=== PATIENT | female | born 1940 | race Caucasian/White ===

== ENCOUNTER 2024-01-07 09:30 | Oncology outpatient (recurring) (ONCR) | payer MEDICARE, BC, SELFPAY ==
[2023-12-30 13:49] LABS: Basophils % 0.1 %; Eosinophils % 0.3 %; Hematocrit 40.2 % (36-47); Lymphocytes # 3.6 10^3/uL (0.8-4.8); Lymphocytes % 51.7 %; Mean Corpuscular HGB Conc 30.8 g/dL (30-55); Mean Corpuscular Hemoglobin 26.8 pg (27-33); Mean Corpuscular Volume 86.8 fl (85-98); Mean Platelet Volume 11.7 fL (7.4-10.4); Monocytes # 0.4 10^3/uL (0.2-0.9); Monocytes % 6.3 %; Neutrophils # 2.89 10^3/uL (1.8-7.7); Neutrophils % 41.5 %; Nucleated Red Blood Cells % 0 %; Platelet Count 127 10^3/cmm (157-399); Red Blood Count 4.63 10^6/uL (3.85-5.65); Red Cell Distribution Width 17.3 % (12.1-15.1); White Blood Count 6.98 10^3/uL (3.29-11.43)
[2023-12-30 15:10] LABS: Alanine Aminotransferase 11 U/L (0-33); Albumin Level 3.9 g/dL (3.5-5.2); Alkaline Phosphatase 70 U/L (35-105); Anion Gap 14.6 (5-19); Aspartate Amino Transferase 11 U/L (0-32); Blood Urea Nitrogen 23 mg/dL (8-23); Carbon Dioxide 28 mmol/L (22-29); Chloride 102 mmol/L (98-107); Creatinine Clr Calc Pharmacy 42.7797; Globulin 2.1 g/dL (1.3-4.6); Glucose 195 mg/dL (65-115); Immunoglobulin IGG 423 mg/dL (700-1600); Lactate Dehydrogenase 131 U/L (135-214); Osmolality Calculated 299 mOsm/kg (285-295); Potassium 4.6 mmol/L (3.5-5.1); Sodium 140 mmol/L (136-145); Total Bilirubin 0.5 mg/dL (0.15-1.2)
[2023-12-30 15:15] LABS: Immunoglobulin IGA < 50 mg/dL (70-400); Immunoglobulin IGM < 25 mg/dL (40-230)
[2024-01-01 12:40] LABS: PROTEIN, TOTAL 5.6 g/dL (6.1-8.1)
[2024-01-01 16:45] LABS: ABNORMAL PROTEIN BAND 1 0.1 g/dL (NONE DETECTED); ALBUMIN 3.6 g/dL (3.8-4.8); ALPHA 1 GLOBULIN 0.3 g/dL (0.2-0.3); ALPHA 2 GLOBULIN 0.8 g/dL (0.5-0.9); BETA 1 GLOBULIN 0.4 g/dL (0.4-0.6); BETA 2 GLOBULIN 0.3 g/dL (0.2-0.5); GAMMA GLOBULIN 0.4 g/dL (0.8-1.7)
[2024-01-04 22:39] LABS: Immunofixation Serum Normal pattern.
[2024-01-07] VITALS (9 sets, daily range): BP systolic 109–156; BP diastolic 62–75; PULSE 60–70; RESP 16; TEMP 35.9–36.3; O2SAT 91–96
[2024-01-07] MEDS: diphenhydrAMINE 25 mg Capsule PO (10:48)
[2024-01-07] MEDS: acetaminophen 325 mg Tablet 650 MG PO (10:48)
[2024-01-07] MEDS: immune globulin (Privigen ONC) 20 GM, immune globulin (Privigen-ONC) 10 GM in empty fle... IV (11:20)
== END 2024-01-25 23:59 | disposition home or self-care (01) ==
PROVIDERS: Visit Provider Internal Medicine Medical Oncology
DX: Z53.9 Procedure and treatment not carried out, unspecified reason (principal); D80.1 Nonfamilial hypogammaglobulinemia
CPT/HCPCS: 36415; 80053; 82784; 83615; 84155; 84165; 85025; 86334; 96365; 96366; 99205; J1459

== ENCOUNTER 2024-02-04 09:04 | Oncology outpatient (recurring) (ONCR) | payer MEDICARE, BC, SELFPAY ==
[2024-02-04] VITALS (7 sets, daily range): BP systolic 135–154; BP diastolic 65–90; PULSE 38–77; RESP 16–17; TEMP 36.2–36.6; O2SAT 90–96
[2024-02-04 09:33] LABS: Basophils % 0.2 %; Eosinophils % 0.5 %; Hematocrit 40.2 % (36-47); Lymphocytes # 3.7 10^3/uL (0.8-4.8); Lymphocytes % 55.7 %; Mean Corpuscular HGB Conc 30.8 g/dL (30-55); Mean Corpuscular Hemoglobin 27.4 pg (27-33); Mean Corpuscular Volume 88.7 fl (85-98); Mean Platelet Volume 11.7 fL (7.4-10.4); Monocytes # 0.3 10^3/uL (0.2-0.9); Monocytes % 4.8 %; Neutrophils # 2.56 10^3/uL (1.8-7.7); Neutrophils % 38.5 %; Nucleated Red Blood Cells % 0 %; Platelet Count 121 10^3/cmm (157-399); Red Blood Count 4.53 10^6/uL (3.85-5.65); Red Cell Distribution Width 16.6 % (12.1-15.1); White Blood Count 6.63 10^3/uL (3.29-11.43)
[2024-02-04 09:44] LABS: Alanine Aminotransferase 12 U/L (0-33); Albumin Level 3.7 g/dL (3.5-5.2); Alkaline Phosphatase 56 U/L (35-105); Blood Urea Nitrogen 23 mg/dL (8-23); Calcium 8.9 mg/dL (8.5-10.5); Carbon Dioxide 28 mmol/L (22-29); Chloride 100 mmol/L (98-107); Glucose 289 mg/dL (65-115); Osmolality Calculated 302 mOsm/kg (285-295); Sodium 139 mmol/L (136-145); Total Bilirubin 0.3 mg/dL (0.15-1.2); Total Protein 5.7 g/dL (6.6-8.7)
[2024-02-04 09:46] LABS: Anion Gap 16.5 (5-19); Aspartate Amino Transferase 14 U/L (0-32); Lactate Dehydrogenase 178 U/L (135-214); Potassium 5.5 mmol/L (3.5-5.1)
[2024-02-04] MEDS: acetaminophen 325 mg Tablet 650 MG PO (11:27)
[2024-02-04] MEDS: diphenhydrAMINE 25 mg Capsule PO (11:27)
[2024-02-04] MEDS: immune globulin (Privigen ONC) 20 GM, immune globulin (Privigen-ONC) 10 GM in empty fle... IV (11:55)
--- NOTE | 2024-02-04 12:15 | USCV_ITS ---
Dacia Zuñiga Age: 83 Gender: F : 1940 Exam Date: 02/04/2024 14:54 Ordering Phys: Judi Kline APRN Technologist: MARTIN Exam Location: [facility] [place] Indication: RLE PAIN AND SWELLING [id number] HISTORY: Lower extremity swelling. Lower extremity pain. PROCEDURES: Venous duplex imaging was performed in only the right lower extremity. The following venous structures were evaluated: common femoral vein, profunda vein, proximal portion of the greater saphenous vein, superficial femoral vein, and the popliteal vein. In addition, the posterior tibial and peroneal trunk were evaluated. Serial compression, augmentation maneuvers, and spectral Doppler flow evaluation were performed. FINDINGS: No evidence of DVT seen in any vessel visualized at this time. CONCLUSIONS No evidence of right lower extremity DVT. Josue Friedman MD (Electronically Signed) Final Date: 04 February 2024 16:02 S
[2024-02-04 15:08] LABS: Potassium 4.2 mmol/L (3.5-5.1)
== END 2024-02-25 23:59 | disposition home or self-care (01) ==
PROVIDERS: Nurse Practitioner Family; Visit Provider Internal Medicine Medical Oncology
DX: D80.1 Nonfamilial hypogammaglobulinemia; C91.10 Chronic lymphocytic leukemia of B-cell type not having achieved remission; Z87.891 Personal history of nicotine dependence; Z92.3 Personal history of irradiation; Z85.831 Personal history of malignant neoplasm of soft tissue; Z53.9 Procedure and treatment not carried out, unspecified reason; Z79.69 Long term (current) use of other immunomodulators and immunosuppressants; Z79.899 Other long term (current) drug therapy; M79.661 Pain in right lower leg
CPT/HCPCS: 80053; 83615; 84132; 85025; 93971; 96365; 96366; 99214; J1459

== ENCOUNTER → 2024-02-17 12:40 | Outpatient (BNVA) | payer MEDICARE, BC, SELFPAY | PROVIDERS: PCP Family Medicine; Visit Provider Internal Medicine | DX: R07.9 Chest pain, unspecified (principal) | CPT/HCPCS: 93005; 99204 ==

== ENCOUNTER → 2024-03-01 13:53 | Outpatient (BNVA) | payer MEDICARE, BC, SELFPAY | PROVIDERS: PCP Family Medicine; Visit Provider Podiatrist Foot & Ankle Surgery | DX: L60.3 Nail dystrophy (principal); G62.9 Polyneuropathy, unspecified; E11.42 Type 2 diabetes mellitus with diabetic polyneuropathy; Z79.4 Long term (current) use of insulin | CPT/HCPCS: 11721; 99203 ==

== ENCOUNTER 2024-03-09 11:07 | Outpatient (CLI) | payer MEDICARE, BC, SELFPAY ==
--- NOTE | 2024-03-09 11:30 | PETR_ITS ---
PROCEDURE INFORMATION: Exam: PET/CT Whole Body Exam date and time: 03/09/2024 12:25 PM Age: 83 years old Clinical indication: Condition or disease; Primary cancer: Cll, soft tissue sarcoma right leg LABS AND CLINICAL REPORTS: Glucose: 155 mg/dl Treatment strategy for malignancy (PET staging): Restaging (PS) TECHNIQUE: Imaging protocol: Following at least four-hour fasting and following the injection of radiopharmaceutical, low dose CT images were obtained. Then, PET images were obtained. Attenuation corrected images were constructed using the CT scan. Fused images of PET and CT were reviewed. The standardized uptake values (SUV) reported below are maximum values within a region of interest, expressed in gm/ml. Exam includes the whole body. Radiopharmaceutical: 9.01 mCi F-18 FDG (Fluorodeoxyglucose), IV. Time of imaging post radiopharmaceutical administration: 1 hour Injection site: Right hand COMPARISON: PT PET Scan 05/22/2023 12:01 PM FINDINGS: Brain: Visualized brain has normal physiologic uptake. Pharynx: No abnormal uptake. Larynx: No abnormal uptake. Thyroid: Stable enlarged multinodular thyroid. Lungs, pleura and trachea: No abnormal uptake. Increased size of 1.2 x 1.1 cm left lower lobe superior segment nodule on axial image 106 of series 202 shows increased solid density with SUV max of 1.0, previously 1.1 x 0.8 cm with ground-glass attenuation and SUV max of 1.0. Smaller subcentimeter non FDG avid right lower lobe nodules are stable. Increased jvcf-kn-cvaevdcw left pleural effusion. Heart: Normal physiologic uptake. Left atrial appendage occlusion device. Stable metallic density at the right ventricular apex. Coronary arteries: Moderate coronary artery calcification. Mediastinal space: No abnormal uptake. Diaphragm: Small hiatal hernia. Liver: No abnormal uptake. Gallbladder and biliary ducts: No abnormal uptake. Prior cholecystectomy. Pancreas: No abnormal uptake. Spleen: No abnormal uptake. Adrenal glands: No abnormal uptake. Stable 1.6 cm non FDG avid left adrenal nodule with hypoattenuation compatible with adenoma. Kidneys and ureters: Normal physiologic uptake. Bilateral renal cysts. Stomach and bowel: No abnormal uptake. Colonic diverticulosis without findings of diverticulitis. Reproductive: The uterus is surgically absent. Vasculature: No abnormal uptake. Heavy systemic atherosclerotic calcification without aortic aneurysm. Lymph nodes: No abnormal uptake. No lymphadenopathy in the head, neck, chest, abdomen, pelvis, and extremities. Skeleton: Degenerative change along the axial and appendicular skeletal system with right knee arthroplasty. Soft tissues: Linear uptake along lower, mhqbd-xlraups-hkvl-left upper back, bilateral forearm and hand, and rnczh-kiawnkq-zhlh-left foot extensor brevis musculature without underlying CT abnormality is likely physiologic or strain. Right anterior lower leg postsurgical change without FDG avidity. Stable nonaggressive appearing lipomatous mass appears to be located within the right quadratus femoris muscle measuring 5.7 x 3.5 cm on axial image 291 of series 202 compatible with intramuscular lipoma. PET/PET WB melanoma SUBSEQ [id number] IMPRESSION: 1. Right lower leg postsurgical change without evidence of FDG avid residual or metastatic disease. 2. Mildly increased size and attenuation of 1.2 cm left lower lobe superior segment nodule. Although very low-level FDG uptake suggests benignity, mildly increased size and morphologic features are concerning for adenocarcinoma. 3. Increased szzr-kj-wbiyelal left pleural effusion. 4. Additional chronic and incidental findings as above.
== END 2024-03-09 11:08 | disposition home or self-care (01) ==
PROVIDERS: PCP Family Medicine; Visit Provider Internal Medicine Medical Oncology
DX: C91.10 Chronic lymphocytic leukemia of B-cell type not having achieved remission (principal); C49.21 Malignant neoplasm of connective and soft tissue of right lower limb, including hip; R91.8 Other nonspecific abnormal finding of lung field; J90 Pleural effusion, not elsewhere classified; Z95.811 Presence of heart assist device; I25.84 Coronary atherosclerosis due to calcified coronary lesion; K44.9 Diaphragmatic hernia without obstruction or gangrene; Z90.49 Acquired absence of other specified parts of digestive tract; D35.02 Benign neoplasm of left adrenal gland; Q61.02 Congenital multiple renal cysts; K57.90 Diverticulosis of intestine, part unspecified, without perforation or abscess without bleeding; Z90.710 Acquired absence of both cervix and uterus; Z96.651 Presence of right artificial knee joint; R93.89 Abnormal findings on diagnostic imaging of other specified body structures
CPT/HCPCS: 78816; A9552

== ENCOUNTER 2024-03-19 13:00 | Oncology outpatient (recurring) (ONCR) | payer MEDICARE, BC, SELFPAY ==
[2024-03-03] VITALS (9 sets, daily range): BP systolic 93–158; BP diastolic 49–74; PULSE 58–79; RESP 16; TEMP 35.8–36.6; O2SAT 94–96
[2024-03-03 08:53] LABS: Basophils % 0.2 %; Eosinophils % 0.4 %; Hematocrit 38.8 % (36-47); Lymphocytes # 4.2 10^3/uL (0.8-4.8); Mean Corpuscular Hemoglobin 28.2 pg (27-33); Mean Corpuscular Volume 88.4 fl (85-98); Mean Platelet Volume 11.5 fL (7.4-10.4); Monocytes # 0.5 10^3/uL (0.2-0.9); Monocytes % 5.7 %; Neutrophils # 3.59 10^3/uL (1.8-7.7); Neutrophils % 43.2 %; Nucleated Red Blood Cells % 0 %; Platelet Count 136 10^3/cmm (157-399); Red Blood Count 4.39 10^6/uL (3.85-5.65); Red Cell Distribution Width 15.9 % (12.1-15.1)
[2024-03-03 09:17] LABS: Alanine Aminotransferase 13 U/L (0-33); Albumin Level 3.6 g/dL (3.5-5.2); Alkaline Phosphatase 51 U/L (35-105); Aspartate Amino Transferase 12 U/L (0-32); Blood Urea Nitrogen 20 mg/dL (8-23); Calcium 8.7 mg/dL (8.5-10.5); Carbon Dioxide 26 mmol/L (22-29); Chloride 104 mmol/L (98-107); Glucose 195 mg/dL (65-115); Osmolality Calculated 302 mOsm/kg (285-295); Sodium 142 mmol/L (136-145); Total Bilirubin 0.4 mg/dL (0.15-1.2); Total Protein 5.6 g/dL (6.6-8.7)
[2024-03-03] MEDS: acetaminophen 325 mg Tablet 650 MG PO (10:56)
[2024-03-03] MEDS: diphenhydrAMINE 25 mg Capsule PO (10:56)
[2024-03-03] MEDS: immune globulin (Privigen ONC) 20 GM, immune globulin (Privigen-ONC) 10 GM in empty fle... IV (11:18)
--- NOTE | 2024-03-19 13:00 | USCV_ITS ---
Dacia Zuñiga Age: 83 Gender: F : 1940 Exam Date: 03/19/2024 13:07 Ordering Phys: Diego Conde M.D ([email or web address]) Technologist: CT Exam Location: [facility] – [place] Indication: BP: 120 / 60 HR: 63 Rhythm: Sinus Technical Quality: Adequate MEASUREMENTS (Male / Female) Normal Values 2D ECHO LVOT Diameter 2.2 cm LV Ejection Fraction MOD 4C 44.9 % LV Ejection Fraction MOD 2C 55.5 % LV Ejection Fraction 2C AL 58.0 % LA Diameter 5.0 cm RA Systolic Volume 4C AL 67.6 ml RA Systolic Volume 4C MOD 65.4 ml LA Sys Volume AL 89.2 cm cubed LA Sys Volume Index AL 47.2 cm cubed/m squared Aorta at Sinotubular Diameter 2.3 cm IVC Diameter 2.8 cm M-MODE LA Ao Ratio MM 1.8 AV Cusp Separation MM 1.8 cm DOPPLER AV Peak Velocity 138.0 cm/s LVOT Peak Velocity 66.0 cm/s AV Area Cont Eq vti 2.1 cm squared AV Area Cont Eq pk 1.8 cm squared MV Peak Velocity 127.0 cm/s MV Area PHT 4.3 cm squared Mitral E to A Ratio 2.4 TR Peak Velocity 357.0 cm/s TR Peak Gradient 51.0 mmHg TV Peak E Velocity 81.0 cm/s Right Atrial Pressure 3.0 mmHg Pulmonary Artery Systolic Pressu 54.0 mmHg PV Peak Velocity 90.0 cm/s FINDINGS Left Ventricle Left ventricle is normal size. LV systolic function is normal with EF of 50-55%. No regional wall motion abnormalities are seen. Septal motion is consistent with conduction abnormality. Right Ventricle Normal in size and function Right Atrium Dilated Left Atrium Dilated Mitral Valve Mild mitral annular calcification. Mild mitral regurgitation. Aortic Valve Structurally normal aortic valve. Mild aortic regurgitation. Tricuspid Valve Mild tricuspid regurgitation. RVSP is 50 to 55 mmHg. This is consistent with moderate pulmonary hypertension Pulmonic Valve Mild pulmonic regurgitation Pericardium Normal Aorta Normal in size IVC Appears to dilated CONCLUSIONS LV systolic function is normal with EF of 50 to 55%. Septal motion is consistent with conduction abnormality Biatrial enlargement Mild mitral regurgitation. Mild aortic regurgitation Mild tricuspid regurgitation Moderate pulmonary hypertension Mild pulmonic regurgitation IVC appears to be dilated. No comparison studies are available. Diego Conde MD (Electronically Signed) Final Date: 20 March 2024 18:35 S
--- NOTE | 2024-03-19 14:00 | USCV_ITS ---
Dacia Zuñiga Age: 83 Gender: F : 1940 Exam Date: 03/19/2024 13:45 Ordering Phys: Diego Conde M.D ([email or web address]) Technologist: [place] [facility] [place]: HISTORY: PROCEDURES: FINDINGS: The veins were found to be easily compressible with spontaneous blood flow. Non pulsatile flow pattern. Venous reflux was noted at the proximal and mid segment of the small saphenous vein on the right side. The reflux time was 0.8 and 1.4 seconds respectively. The venous segments were measuring 0.4 and 0.3 cm in diameter and at a depth of 0.7 and 0.4 cm respectively. CONCLUSIONS No evidence of DVT in the above-mentioned identifiable veins. 2. The proximal and mid segment of the small saphenous vein on the right side was found to have significant reflux of greater than 500 ms. However this venous segments were found to be less than 1 cm from the surface. The reflux time, venous dimensions and the depth from the surface are as mentioned above 3. No significant reflux on the left side Dr Alba Montenegro MD [facility] (Electronically Signed) Final Date: 20 March 2024 09:36 S
== END 2024-03-27 23:59 | disposition home or self-care (01) ==
LOC: ONCMED 03-22 06:57
PROVIDERS: Nurse Practitioner Family; PCP Family Medicine; Visit Provider Internal Medicine
DX: Z53.9 Procedure and treatment not carried out, unspecified reason (principal); M79.604 Pain in right leg; M79.605 Pain in left leg; I87.2 Venous insufficiency (chronic) (peripheral); I08.3 Combined rheumatic disorders of mitral, aortic and tricuspid valves; I27.20 Pulmonary hypertension, unspecified
CPT/HCPCS: 80053; 85025; 93306; 93970; 96365; 96366; 99214; J1459

== ENCOUNTER 2024-04-01 09:17 | Oncology outpatient (recurring) (ONCR) | payer MEDICARE, BC, SELFPAY ==
[2024-04-01] VITALS (8 sets, daily range): BP systolic 113–137; BP diastolic 56–76; PULSE 60–73; RESP 16–18; TEMP 35.6–36.6; O2SAT 91–97
[2024-04-01 09:38] LABS: Basophils % 0.1 %; Eosinophils % 0.4 %; Hematocrit 41.5 % (36-47); Lymphocytes # 3.4 10^3/uL (0.8-4.8); Lymphocytes % 45.7 %; Mean Corpuscular HGB Conc 31.6 g/dL (30-55); Mean Corpuscular Volume 88.7 fl (85-98); Mean Platelet Volume 11.8 fL (7.4-10.4); Monocytes # 0.4 10^3/uL (0.2-0.9); Monocytes % 5.7 %; Neutrophils # 3.49 10^3/uL (1.8-7.7); Neutrophils % 47.7 %; Nucleated Red Blood Cells % 0 %; Platelet Count 126 10^3/cmm (157-399); Red Blood Count 4.68 10^6/uL (3.85-5.65); Red Cell Distribution Width 15.2 % (12.1-15.1); White Blood Count 7.33 10^3/uL (3.29-11.43)
[2024-04-01 09:58] LABS: Alanine Aminotransferase 10 U/L (0-33); Albumin Level 3.9 g/dL (3.5-5.2); Alkaline Phosphatase 47 U/L (35-105); Anion Gap 16.7 (5-19); Aspartate Amino Transferase 10 U/L (0-32); Blood Urea Nitrogen 25 mg/dL (8-23); Calcium 9.3 mg/dL (8.5-10.5); Carbon Dioxide 28 mmol/L (22-29); Chloride 100 mmol/L (98-107); Globulin 2.2 g/dL (1.3-4.6); Glucose 269 mg/dL (65-115); Lactate Dehydrogenase 116 U/L (135-214); Osmolality Calculated 304 mOsm/kg (285-295); Potassium 4.7 mmol/L (3.5-5.1); Sodium 140 mmol/L (136-145); Total Bilirubin 0.5 mg/dL (0.15-1.2); Total Protein 6.1 g/dL (6.6-8.7)
[2024-04-01] MEDS: diphenhydrAMINE 25 mg Capsule PO (11:48)
[2024-04-01] MEDS: acetaminophen 325 mg Tablet 650 MG PO (11:49)
[2024-04-01] MEDS: immune globulin (Privigen ONC) 20 GM, immune globulin (Privigen-ONC) 10 GM in empty fle... IV (12:06)
== END 2024-04-26 23:59 | disposition home or self-care (01) ==
PROVIDERS: Internal Medicine Medical Oncology; PCP Family Medicine; Visit Provider Internal Medicine
DX: C91.10 Chronic lymphocytic leukemia of B-cell type not having achieved remission; C49.9 Malignant neoplasm of connective and soft tissue, unspecified; D80.1 Nonfamilial hypogammaglobulinemia; Z85.831 Personal history of malignant neoplasm of soft tissue; Z87.891 Personal history of nicotine dependence; Z92.3 Personal history of irradiation; Z79.69 Long term (current) use of other immunomodulators and immunosuppressants; Z79.899 Other long term (current) drug therapy; Z53.9 Procedure and treatment not carried out, unspecified reason; J90 Pleural effusion, not elsewhere classified
CPT/HCPCS: 36415; 80053; 83615; 85025; 96365; 96366; 99214; J1459

== ENCOUNTER 2024-04-06 10:00 | Day surgery (SDC) | payer MEDICARE, BC, SELFPAY ==
[2024-04-06 10:11] VITALS: BMI 29.2
--- NOTE | 2024-04-06 10:14 | US_ITS ---
WS: [email or web address] ULTRASOUND-GUIDED THORACENTESIS, LEFT HISTORY: abnormal imaging lt lung Procedure, risks, and complications were explained to the patient. With the patient in an upright pos ition, the skin over the LEFT posterior thorax was cleansed with ChloraPrep and anesthetized with 1% buffered lidocaine. A 5 Thai [employer]dSY[employer]eh needle is inserted into the pleural fluid without complication. A pproximately 400 cc of light red pleural fluid is removed without difficulty. / thoracentesis [id number] IMPRESSION: 1. LEFT thoracentesis yielding 400 cc of fluid. 2. Chest radiograph to follow to evaluate for pneumothorax. 3. Pleural fluid aspirated is light red containing dilute blood.
[2024-04-06 10:31] VITALS: BP 150/62; PULSE 61; RESP 20; TEMP 36.5; O2SAT 92
--- NOTE | 2024-04-06 11:57 | XR_ITS ---
WS: [email or web address] PORTABLE CHEST HISTORY: Post LEFT thoracentesis. COMPARISON: None available. No pneumothorax status post thoracentesis. Lungs are well aerated. No residual pleural effusion. No pneumothorax. Cardiac size: Mild cardiomegaly. Cardiac loop recorder noted over the lower thorax. Mediastinum/Aorta: Mild atherosclerosis aorta. Degenerative changes at the glenohumeral joints. XR/XR chest 1V portable [id number] IMPRESSION: No pneumothorax status post LEFT thoracentesis. No residual LEFT pleural effusion.
[2024-04-06 12:19] LABS: Appearance, Pleural Fluid CLOUDY (CLEAR); Color, Pleural Fluid Red (Pale Yellow); Cyto Order Verification Order Verified; Left Pleural Fluid Analysis Left Lung
[2024-04-06 12:20] LABS: Fluid Laterality LEFT LUNG PLEURAL FL; PATH Referral YES
[2024-04-06 12:27] LABS: Mononuclear %, Pleural Fluid 96 %; Mononuclear, Pleural Fluid # 0.982 10^3/uL; Polynuclear Cells, Pleural # 0.042 10^3/uL; Polynuclear Cells, Pleural % 4 %
[2024-04-06 13:40] LABS: LDH Pleural Fluid 68 U/L; Total Protein Pleural Fluid 3.4 g/dL
== END 2024-04-06 12:50 | disposition home or self-care (01) ==
PROVIDERS: Radiology Diagnostic Radiology; PCP Family Medicine; Visit Provider Internal Medicine Medical Oncology
PROC: (CPT 32554; principal; 2024-04-06 11:30)
DX: R91.8 Other nonspecific abnormal finding of lung field (principal)
CPT/HCPCS: 32555; 71045; 80503; 82945; 83615; 84157; 87070; 87075; 87205; 88112; 88305; 89050

== ENCOUNTER → 2024-04-07 10:52 | Outpatient (BNVA) | payer MEDICARE, BC, SELFPAY | PROVIDERS: PCP Family Medicine; Referring Provider Family Medicine; Visit Provider Nurse Practitioner Family | DX: D48.5 Neoplasm of uncertain behavior of skin (principal); L57.8 Other skin changes due to chronic exposure to nonionizing radiation; L82.1 Other seborrheic keratosis; L82.0 Inflamed seborrheic keratosis; L81.4 Other melanin hyperpigmentation; D18.01 Hemangioma of skin and subcutaneous tissue; L21.8 Other seborrheic dermatitis; L57.0 Actinic keratosis; L91.8 Other hypertrophic disorders of the skin | CPT/HCPCS: 11102; 17000; 17110; 99204 ==

== ENCOUNTER 2024-04-22 11:21 | Day surgery (SDC) | payer MEDICARE, BC, SELFPAY ==
[2024-04-22 11:40] VITALS: BP 129/70; PULSE 20; RESP 20; TEMP 36.1; O2SAT 95; BMI 29.8
--- NOTE | 2024-04-22 11:45 | US_ITS ---
WS: [email or web address] ULTRASOUND-GUIDED THORACENTESIS, LEFT HISTORY: PLEURAL EFFUSION Procedure, risks, and complications were explained to the patient. With the patient in an upright pos ition, the skin over the LEFT posterior thorax was cleansed with ChloraPrep and anesthetized with 1% buffered lidocaine. A 5 [place] Yueh needle is inserted into the pleural fluid without complication. A pproximately 1500 cc of dark red bloody pleural fluid is removed without difficulty. / thoracentesis [id number] IMPRESSION: 1. LEFT thoracentesis yielding 1500 cc of fluid. 2. Chest radiograph to follow to evaluate for pneumothorax.
--- NOTE | 2024-04-22 13:18 | XR_ITS ---
WS: [email or web address] PORTABLE CHEST HISTORY: POST THORACENTESIS COMPARISON: 04/16/2024 No pneumothorax status post LEFT thoracentesis. There is a small residual LEFT pleural effusion and/o r atelectasis. Lungs are clear and well expanded. No pleural effusion or pneumothorax. Cardiac size: Mildly enlarged cardiac silhouette. Mediastinum/Aorta: Mild atherosclerosis aorta. Osteopenia. XR/XR chest 1V portable [id number] IMPRESSION: 1. No pneumothorax status post LEFT thoracentesis. 2. Small amount of residual LEFT pleural fluid and/or atelectasis.
[2024-04-22 13:22] VITALS: BP 154/64; PULSE 68; RESP 20; O2SAT 94
== END 2024-04-22 13:54 | disposition home or self-care (01) ==
PROVIDERS: Radiology Diagnostic Radiology
PROC: (CPT 32554; principal; 2024-04-22 13:00)
DX: J90 Pleural effusion, not elsewhere classified (principal)
CPT/HCPCS: 32555; 71045

== ENCOUNTER 2024-04-22 19:17 | Emergency (ER) | payer MEDICARE, BC, SELFPAY ==
[2024-04-22] VITALS (8 sets, daily range): BP systolic 131–198; BP diastolic 56–89; PULSE 69–87; RESP 16–18; TEMP 36.5; O2SAT 93–97; BMI 29.5
--- NOTE | 2024-04-22 19:20 | ECG_ITS ---
[facility] Test Date: 2024-04-22 Pat Name: Dacia Zuñiga Department: Room: Gender: Female [employer]: : 1940 Requested By: Cecille Herman Order Number: [id number] Karolyn MD: Alba Montenegro M.D. Measurements Intervals [place] Rate: 72 P: 0 CO: 0 QRS: -39 QRSD: 169 T: 87 QT: 402 QTc: 440 Interpretive Statements ELECTRONIC VENTRICULAR PACEMAKER ABNORMAL RHYTHM ECG Compared to ECG 02/17/2024 12:49:22 No significant changes Electronically Signed On 04-23-2024 20:24:29 CDT by Alba Montenegro M.D. [id number]
--- NOTE | 2024-04-22 19:22 | XRR_ITS ---
PROCEDURE INFORMATION: Exam: XR Chest Exam date and time: 04/22/2024 8:02 PM Age: 83 years old Clinical indication: Pain; Chest pressure; Prior surgery; Surgery date: 6+ months; Surgery type: Loop recorder; Additional info: Chest pain TECHNIQUE: Imaging protocol: Radiologic exam of the chest. Views: 1 view. COMPARISON: CR XR chest 1V portable [id number] 04/22/2024 1:31 PM FINDINGS: Tubes, catheters and devices: Left atrial appendage occlusion device, stable. Loop recorder. Lungs: Opacification of the left lung base effacing the left hemidiaphragm. Pleural spaces: Probable left pleural effusion. No pneumothorax. Heart/Mediastinum: Cardiomegaly. Bones/joints: No acute findings. XR/XR chest 1V portable [id number] IMPRESSION: Opacification of the left lung base may represent any combination pleural effusion, atelectasis and/or consolidation.
[2024-04-22 19:46] LABS: Basophils % 0.3 %; Eosinophils % 0.6 %; Hematocrit 35.5 % (36-47); Lymphocytes # 2.9 10^3/uL (0.8-4.8); Lymphocytes % 41.7 %; Mean Corpuscular Hemoglobin 28.4 pg (27-33); Mean Corpuscular Volume 91.7 fl (85-98); Mean Platelet Volume 12.1 fL (7.4-10.4); Monocytes # 0.6 10^3/uL (0.2-0.9); Neutrophils # 3.36 10^3/uL (1.8-7.7); Nucleated Red Blood Cells % 0 %; Platelet Count 105 10^3/cmm (157-399); Red Blood Count 3.87 10^6/uL (3.85-5.65); Red Cell Distribution Width 15.6 % (12.1-15.1); White Blood Count 6.86 10^3/uL (3.29-11.43)
[2024-04-22 20:09] LABS: Troponin(5th) Baseline 18 ng/L (0-10)
--- NOTE | 2024-04-22 20:18 | CTR_ITS ---
PROCEDURE INFORMATION: Exam: CT Chest Without Contrast; Diagnostic Exam date and time: 04/22/2024 8:48 PM Age: 83 years old Clinical indication: Shortness of breath; Prior surgery; Surgery date: Post-operative (0-2 days); Surgery type: Thoracentesis; Additional info: Thoracentesis earlier today, now with chest pain TECHNIQUE: Imaging protocol: Diagnostic computed tomography of the chest without contrast. Radiation optimization: All CT scans at this facility use at least one of these dose optimization techniques: automated exposure control; mA and/or kV adjustment per patient size (includes targeted exams where dose is matched to clinical indication); or iterative reconstruction. COMPARISON: CT chest con [id number] 04/18/2024 11:03 AM RADIATION DOSE METRICS: Total DLP (mGy-cm): 488.21 FINDINGS: Tubes, catheters and devices: Left atrial appendage occlusive device. Lungs: Improved aeration of the left lower lobe with patchy ground-glass opacities which could represent atelectasis or pulmonary edema. Stable bilateral ground-glass nodules, including the 1.2 cm nodule in the left lower lobe and 1.0 cm nodule in the right lower lobe. Pleural spaces: Decreased left pleural effusion status post thoracentesis. Heart: Unremarkable. No cardiomegaly. No pericardial effusion. Lymph nodes: Unremarkable. No enlarged lymph nodes. Vasculature: No aortic aneurysm. Bones/joints: No acute bony findings. Soft tissues: Unremarkable. CT/CT chest con [id number] IMPRESSION: 1. Decreased left pleural effusion with associated improved left lower lobe aeration status post thoracentesis. No pneumothorax. 2. Atelectasis and/or mild component of pulmonary edema in the left lower lobe. 3. Stable nonspecific bilateral lower lobe ground-glass nodules, which may be infectious/inflammatory in etiology. Recommend follow-up CT as previously suggested.
[2024-04-22 20:19] LABS: NT Pro B Type Natriuretic Pept 970 pg/mL (0-450); Procalcitonin 0.03 ng/mL (0-0.5)
[2024-04-22 20:30] LABS: Alanine Aminotransferase 9 U/L (0-33); Albumin Level 3.7 g/dL (3.5-5.2); Alkaline Phosphatase 44 U/L (35-105); Aspartate Amino Transferase 10 U/L (0-32); Blood Urea Nitrogen 23 mg/dL (8-23); C Reactive Protein 18.7 mg/L (0.0-4.9); Calcium 8.8 mg/dL (8.5-10.5); Carbon Dioxide 30 mmol/L (22-29); Chloride 98 mmol/L (98-107); Creatinine Clr Calc Pharmacy 53.8562; Globulin 1.6 g/dL (1.3-4.6); Glucose 146 mg/dL (65-115); Osmolality Calculated 292 mOsm/kg (285-295); Sodium 138 mmol/L (136-145); Total Bilirubin 0.2 mg/dL (0.15-1.2); Total Protein 5.3 g/dL (6.6-8.7)
[2024-04-22 20:33] LABS: Anion Gap 14.6 (5-19); Potassium 4.6 mmol/L (3.5-5.1)
--- NOTE | 2024-04-22 21:04 | ED_ITS ---
HPI - Chest Pain 2 General: Chief Complaint: Chest Pain Stated Complaint: chest pain Time Seen by Provider: 04/22/24 19:19 History of Present Illness: 83-year-old female who has a chronic ple ural effusion has had it drained twice now. Second time was today. Said after it was drained she is been having pain in her left chest. Pain with inspiration. Not really short of breath more than usual. This is the first time he took about 400 cc office and today they took 1500. No fever. No cough. No altered mental status. No focal motor deficits. No abdominal pain. No nausea or vomiting. Related Data Home Medications Medication Instructions Recorded Confirmed amlodipine 5 mg tablet 5 mg PO DAILY 12/30/23 04/21/24 aspirin 81 mg tablet,delayed 81 mg PO DAILY 12/30/23 04/21/24 release (Adult Low Dose Aspirin) atorvastatin 40 mg tablet 40 mg PO DAILY 12/30/23 04/21/24 cetirizine 10 mg tablet (Zyrtec) 10 mg PO DAILY 12/30/23 04/21/24 digoxin 125 mcg (0.125 mg) tablet 125 mcg PO DAILY 12/30/23 04/21/24 furosemide 40 mg tablet 40 mg PO DAILY 12/30/23 04/21/24 gabapentin 300 mg capsule 300 mg PO TID 12/30/23 04/21/24 insulin glargine 100 unit/mL (3 10 unit SUBCUT BID PRN 12/30/23 04/21/24 mL) subcutaneous pen (Basaglar Hyperglycemia KwikPen U-100 Insulin) potassium chloride 10 mEq 10 meq PO BID 12/30/23 04/21/24 tablet,extended release tizanidine 2 mg capsule 2 mg PO BID 12/30/23 04/21/24 tramadol 50 mg tablet 100 mg PO DAILY PRN Pain 12/30/23 04/21/24 acetaminophen 500 mg tablet 1,000 mg PO QID PRN Pain 03/24/24 04/21/24 biotin 2,500 mcg tablet 1,250 mcg PO DAILY 03/24/24 04/21/24 calcium carbonate-vitamin D3 600 1 tab PO DAILY 03/24/24 04/21/24 mg-125 unit tablet ferrous sulfate 325 mg (65 mg 325 mg PO DAILY 03/24/24 04/21/24 iron) tablet Previous Rx's Medication Instructions Recorded zanubrutinib 80 mg capsule 160 mg (2 x 80 mg) PO BID #120 caps 04/01/24 (Brukinsa) hydrocodone 5 mg-acetaminophen 325 1 tab PO Q6H PRN pain #20 tabs 04/22/24 mg tablet polyethylene glycol 3350 17 17 g PO DAILY #510 grams 04/22/24 gram/dose oral powder (Miralax) Allergies Allergy/AdvReac Type Severity Reaction Status Date / Time guaifenesin Allergy Intermediate ALGY-Hives Verified 04/21/24 09:40 iodine Allergy Intermediate ALGY-Hives Verified 04/21/24 09:40 levofloxacin Allergy Intermediate ALGY-Hives Verified 04/21/24 09:40 meloxicam [From Mobic] Allergy Intermediate ALGY-Hives Verified 04/21/24 09:40 morphine Allergy Intermediate ALGY-Hives Verified 04/21/24 09:40 nitrofurantoin Allergy Intermediate ALGY-Hives Verified 04/21/24 09:40 [From Macrobid] prednisone Allergy Intermediate ALGY-Hives Verified 04/21/24 09:40 Review of Systems 2 Narrative: Constitutional symptoms: Negative except as documented in HPI. Skin symptoms: Negative except as documented in HPI. Eye symptoms: Negative except as documented in HPI. ENMT symptoms: Negative except as documented in HPI. Respiratory symptoms: Negative except as documented in HPI. Cardiovascular symptoms: Negative except as documented in HPI. Gastrointestinal symptoms: Negative except as documented in HPI. Genitourinary symptoms: Negative except as documented in HPI. Musculoskeletal symptoms: Negative except as documented in HPI. Neurologic symptoms: Negative except as documented in HPI. Psychiatric symptoms: Negative except as documented in HPI. Endocrine symptoms: Negative except as documented in HPI. 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 Skin: Warm, dry. Head: Normocephalic, atraumatic. Neck: Supple, trachea midline. Eye: Extraocular movements are intact. Ears, nose, mouth and throat: mucosa moist. Cardiovascular: Regular, Normal peripheral perfusion. Respiratory: Lungs are clear to auscultation, respirations are non-labored, breath sounds are equal, Symmetrical chest wall expansion. Gastrointestinal: Soft, Nontender, Non distended Musculoskeletal: Normal ROM, no deformity. Neurological: Alert and oriented, No focal neurological deficit observed. Psychiatric: Cooperative, appropriate mood & affect. Course 2 Vital Signs: Vital signs: Vital Signs Temperature 97.7 F 04/22/24 19:18 Pulse Rate 76 04/22/24 21:30 Respiratory Rate 17 04/22/24 21:30 Blood Pressure 162/56 04/22/24 21:30 Pulse Oximetry 97 04/22/24 21:30 Oxygen Delivery Me thod Nasal Cannula 04/22/24 21:30 Oxygen Flow Rate 2 04/22/24 21:30 MDM - Chest Pain Medical Decision Making Differential diagnosis for patient with chest pain includes but is not limited to and based on the above HPI, review of systems and physical exam: Pneumonia. unstable angina. angina. Acute coronary syndrome / [place]. Pulmonary embolism. Costochondritis / musculoskeletal. Pleurisy. Pericarditis. Esophageal spasm. Pancreatis. Cholecystitis. Orders placed to evaluate differential diagnosis based on the above differential, HPI and physical exam EKG: Time 2118. Rate 71. Atrial fibrillation with controlled rate, No ST-T changes, no ectopy, This was reviewed and interpreted by myself the ER physician at 2121 Chest x-ray: Still with some pleural effusion on the left. No acute process. No infiltrate. No pneumothorax. This was reviewed and interpreted by myself the ER physician. Lab Review: Laboratory results were reviewed and interpreted by myself the emergency room physician. No leukocytosis. Hemoglobin is 11 which is slightly lower than her previous measurements of 12 and 13. Platelets are low at 105. He is always a little bit thrombocytopenic at around 130-140 normally. Troponin was 19 and 18 respectively. This is the patient's baseline no evidence of acute coronary syndrome CT of the chest without contrast: Decreased left lateral effusion with associated left lower lobe aeration improvement. No pneumo. There are some atelectasis. Also some pulmonary nodules that need follow-up in 3 months. This was reviewed and interpreted by myself the emergency room physician. I also reviewed the radiology report. I reviewed the patient's medical record. Reexamination: Patient remained stable. No increased work of breathing. No altered mental status. No focal motor deficits. Assessment and plan: Noncardiac chest pain Pleural effusion Pulmonary nodules Atrial fibrillation ?Tramadol and IV Dilaudid for pain. No acute findings. ?A-fib is known and rate is controlled ?Patient has appointment with pulmonology on Friday. Aware of nodules. - Discharged home - Discussed plan with patient. Answered any questions. - Evaluation and treatment of this problem were appropriate in the emergency setting. Lab Data 04/22/24 19:35 04/22/24 19:35 Radiology Impressions Chest X-Ray 04/22/24 19:22 IMPRESSION: Opacification of the left lung base may represent any combination pleural effusion, atelectasis and/or consolidation. Chest CT 04/22/24 20:18 IMPRESSION: 1. Decreased left pleural effusion with associated improved left lower lobe aeration status post thoracentesis. No pneumothorax. 2. Atelectasis and/or mild component of pulmonary edema in the left lower lobe. 3. Stable nonspecific bilateral lower lobe ground-glass nodules, which may be infectious/inflammatory in etiology. Recommend follow-up CT as previously suggested. Laboratory Results WBC 6.86 10^3/uL (3.29-11.43) 04/22/24 19:35 RBC 3.87 10^6/uL (3.85-5.65) 04/22/24 19:35 Hgb 11.00 g/dL (11.27-16.99) L 04/22/24 19:35 Hct 35.5 % (36-47) L 04/22/24 19:35 MCV 91.7 fl (85-98) 04/22/24 19:35 MCH 28.4 pg (27-33) 04/22/24 19:35 MCHC 31.0 g/dL (30-55) 04/22/24 19:35 RDW 15.6 % (12.1-15.1) H 04/22/24 19:35 Plt Count 105 10^3/cmm (157-399) L 04/22/24 19:35 MPV 12.1 fL (7.4-10.4) H 04/22/24 19:35 Neut % (Auto) 49.0 % 04/22/24 19:35 Lymph % (Auto) 41.7 % 04/22/24 19:35 [place] % (Auto) 8.0 % 04/22/24 19:35 Eos % (Auto) 0.6 % 04/22/24 19:35 Baso % (Auto) 0.3 % 04/22/24 19:35 Neut # (Auto) 3.36 10^3/uL (1.8-7.7) 04/22/24 19:35 Lymph # (Auto) 2.9 10^3/uL (0.8-4.8) 04/22/24 19:35 [place] # (Auto) 0.6 10^3/uL (0.2-0.9) 04/22/24 19:35 Eos # (Auto) 0.0 10^3/uL (0.0-0.8) 04/22/24 19:35 Baso # (Auto) 0.0 10^3/uL (0.0-0.1) 04/22/24 19:35 Nucleated RBC % (auto) 0 % 04/22/24 19:35 Nucleated RBCs # 0.0 /100WBC 04/22/24 19:35 Sodium 138 mmol/L (136-145) 04/22/24 19:35 Potassium 4.6 mmol/L (3.5-5.1) 04/22/24 19:35 Chloride 98 mmol/L (98-107) 04/22/24 19:35 Carbon Dioxide 30 mmol/L (22-29) H 04/22/24 19:35 Anion Gap 14.6 (5-19) 04/22/24 19:35 BUN 23 mg/dL (8-23) 04/22/24 19:35 Creatinine 0.8 mg/dL (0.5-0.9) 04/22/24 19:35 GFR Calculation Not Reportable 04/22/24 19:35 Glucose 146 mg/dL (65-115) H 04/22/24 19:35 Calculated Osmolality 292 mOsm/kg (285-295) 04/22/24 19:35 Lactic Acid 1.0 mmol/L (0.5-2.2) 04/22/24 19:35 Calcium 8.8 mg/dL (8.5-10.5) 04/22/24 19:35 Total Bilirubin 0.2 mg/dL (0.15-1.2) 04/22/24 19:35 AST 10 U/L (0-32) 04/22/24 19:35 ALT 9 U/L (0-33) 04/22/24 19:35 Alkaline Phosphatase 44 U/L (35-105) 04/22/24 19:35 Troponin T Baseline 18 ng/L (0-10) H 04/22/24 19:35 Troponin T 120 Minute 19.80 ng/L (0-10) H 04/22/24 21:07 Delta Troponin T 1.80 ABS# (0-10) 04/22/24 21:07 C-Reactive Protein 18.7 mg/L (0.0-4.9) H 04/22/24 19:35 NT-Pro-B Natriuret Pep 970 pg/mL (0-450) H 04/22/24 19:35 Total Protein 5.3 g/dL (6.6-8.7) L 04/22/24 19:35 Albumin 3.7 g/dL (3.5-5.2) 04/22/24 19:35 Globulin 1.6 g/dL (1.3-4.6) 04/22/24 19:35 Procalcitonin 0.03 ng/mL (0-0.5) 04/22/24 19:35 All radiology interpretation(s) finalized by discharge Discharge Plan Discharge Patient Disposition: Home Clinical Impression: Chest pain, Atrial fibrillation, Pleural effusion, left Condition: Stable Prescriptions: New hydrocodone-acetaminophen 5-325 mg tablet 1 tab PO Q6H PRN (Reason: pain) Qty: 20 0RF Miralax 17 gram/dose powder 17 g PO DAILY Qty: 510 0RF Rx Instructions: Take 1 scoop daily while taking pain medications. No Action aspirin [Adult Low Dose Aspirin] 81 mg tablet,delayed release (DR/EC) 81 mg PO DAILY Patient Comments: AM cetirizine [Zyrtec] 10 mg tablet 10 mg PO DAILY Patient Comments: AM furosemide 40 mg tablet 40 mg PO DAILY Patient Comments: AM tizanidine 2 mg capsule 2 mg PO BID Patient Comments: AM and PM gabapentin 300 mg capsule 300 mg PO TID potassium chloride 10 mEq tablet extended release 10 meq PO BID Patient Comments: AM and PM digoxin 125 mcg (0.125 mg) tablet 125 mcg PO DAILY Patient Comments: lunchtime atorvastatin 40 mg tablet 40 mg PO DAILY Patient Comments: PM amlodipine 5 mg tablet 5 mg PO DAILY Patient Comments: PM tramadol 50 mg tablet 100 mg PO DAILY PRN (Reason: Pain) insulin glargine [Basaglar KwikPen U-100 Insulin] 100 unit/mL (3 mL) insulin pen 10 unit SUBCUT BID PRN (Reason: Hyperglycemia) Patient Comments: 10 units in AM, 15 units PM, PRN if blood sugar is >200 Brukinsa 80 mg capsule 160 mg PO BID Qty: 120 0RF acetaminophen 500 mg Tablet 1,000 mg PO QID PRN (Reason: Pain) ferrous sulfate 325 mg (65 mg iron) Tablet 325 mg PO DAILY biotin 2,500 mcg Tablet 1,250 mcg PO DAILY Calcium 600 + D(3) 600-125 mg-unit Tablet 1 tab PO DAILY Discharge Orders: Discharge ED (Routine); Ordered 04/22/24 Ordered By: Cecille Costa Referrals: Trey Zayas [Primary Care Provider] - Discharge Diet: Usual diet Discharge Activity: Increase activity as tolerated Patient Instructions: Pain Management Activity Restrictions/Additional Instructions: A pulmonary nodule was seen on imaging. This will need follow up imaging with your primary provider. Please schedule an appointment concerning this. Make sure your interior design instructor is aware of these findings on the CT scan. Thank you for choosing [facility] for your healthcare needs today. Please realize this is an emergency room and that we are providing you with a medical screening exam and this may not be complete and all inclusive of all the testing and or work up that you may need to determine your ailment or severity of your illness. You have been screened and evaluated and felt safe for discharge. Health conditions do change or evolve sometimes and as such it is important that you follow up with your Primary Doctor to be re checked, 3-5 days is a general good time frame for follow up. You are always welcome to return to the ED for re assessment if your symptoms are worsening or you have new concerns Coding Level of Care Code ED Technical Analyst for Ivania Holman
--- NOTE | 2024-04-22 21:13 | PC.NURSE ---
pt requesting food, states she didn't eat dinner. Dr. Costa notified and okay with pt eating and drinking. pt given sandwich, pudding, and sprite zero.
--- NOTE | 2024-04-22 21:19 | ECG_ITS ---
[facility] Test Date: 2024-04-22 Pat Name: Dacia Zuñiga Department: Room: Gender: Female Caddymaster: : 1940 Requested By: Cecille Herman Order Number: [id number] Karolyn MD: Alba Montenegro M.D. Measurements Intervals [place] Rate: 71 P: 0 CA: 0 QRS: -11 QRSD: 103 T: 31 QT: 367 QTc: 399 Interpretive Statements ATRIAL FIBRILLATION LOW QRS VOLTAGE IN PRECORDIAL LEADS [QRS DEFLECTION < 1.0 mV IN CHEST LEADS] ANTEROSEPTAL MYOCARDIAL INFARCTION , OF INDETERMINATE AGE [40+ ms Q WAVE IN V1-V4] Compared to ECG 04/22/2024 19:20:12 Low QRS voltage now present Myocardial infarct finding now present Ventricular-paced complex(es) or rhythm no longer present Electronically Signed On 04-23-2024 20:29:48 CDT by Alba Montenegro M.D. [email or web address]
[2024-04-22] MEDS: TRAMadol 50 mg Tablet PO (21:29)
[2024-04-22] MEDS: HYDROcodone-acetaminophen 10-325 mg Tablet 1 TAB PO (21:57)
[2024-04-22] MEDS: ondansetron 2 mg/ML SDV 2 mL 4 MG IVP (21:57)
[2024-04-22] MEDS: HYDROmorphone 1 mg/mL INJ 1 mL IVP (22:11)
== END 2024-04-22 22:53 | disposition home or self-care (01) ==
PROVIDERS: Emergency Provider Emergency Medicine; PCP Family Medicine
DX: R07.9 Chest pain, unspecified (principal); J90 Pleural effusion, not elsewhere classified; I48.91 Unspecified atrial fibrillation; Z79.82 Long term (current) use of aspirin; Z79.4 Long term (current) use of insulin; Z85.6 Personal history of leukemia; E11.42 Type 2 diabetes mellitus with diabetic polyneuropathy; Z87.891 Personal history of nicotine dependence; Z95.0 Presence of cardiac pacemaker
CPT/HCPCS: 71045; 71250; 80053; 83605; 83880; 84145; 84484; 85025; 86140; 93005; 96374; 96375; 99285; J1170; J2405

== ENCOUNTER 2024-04-27 12:07 | Emergency (ER) | payer MEDICARE, BC, SELFPAY ==
[2024-04-27] VITALS (56 sets, daily range): BP systolic 150–183; BP diastolic 61–108; PULSE 71–122; RESP 15–33; TEMP 36.8; O2SAT 87–100
--- NOTE | 2024-04-27 12:08 | XR_ITS ---
WS: [id number] Exam: XR chest 1V portable [id number] Date/Time of Exam: 04/27/2024 12:08 PM Reason For Exam: sob Comparison 04/22/2024. Significant increase in LEFT pleural effusion with compressive atelectasis of the lower lobe and ling kierra of the LEFT lung. The RIGHT lung is clear. The heart is probably not enlarged but the LEFT heart border is obscured. Postoperative changes at the LEFT hilum. The mediastinum is normal in contour. No pneumothorax. Bony structures are intact. Advanced DJD of both shoulders. Battery pack superimposes the LEFT heart. XR/XR chest 1V portable [id number] IMPRESSION: 1. Significant increase in LEFT pleural effusion since the prior study with com pressive atelectasis of the LEFT lung as noted above.
[2024-04-27 12:55] LABS: Glucose Point of Care 181 mg/dL (70-110)
--- NOTE | 2024-04-27 12:57 | ED_ITS ---
HPI - SOB/Dyspnea 2 General: Chief Complaint: Shortness of Breath/Dyspnea Stated Complaint: Home health hears no air moving left side Time Seen by Provider: 04/27/24 12:57 History of Present Illness: HPI Narrative: 83-year-old female with history of sarco ma over the right leg with now has nodules in the lung she is recently been being worked up for this. She has had 2 thoracentesis in the last few weeks [facility] diagnosis together was therapeutic. She having increasing shortness of breath decreased breath sounds on the left side presents emergency room for further evaluation. She currently is on 2 L by nasal cannula and the last 2 weeks she has had to transition to oxygen supplemental at 2 L/min continuously. Associated symptoms: Deny abdominal pain, chest pain or fever(s) Related Data Home Medications Medication Instructions Recorded Confirmed amlodipine 5 mg tablet 5 mg PO DAILY 12/30/23 04/27/24 aspirin 81 mg tablet,delayed 81 mg PO DAILY 12/30/23 04/27/24 release (Adult Low Dose Aspirin) atorvastatin 40 mg tablet 40 mg PO DAILY 12/30/23 04/27/24 cetirizine 10 mg tablet (Zyrtec) 10 mg PO DAILY 12/30/23 04/27/24 digoxin 125 mcg (0.125 mg) tablet 125 mcg PO DAILY 12/30/23 04/27/24 furosemide 40 mg tablet 40 mg PO DAILY 12/30/23 04/27/24 gabapentin 300 mg capsule 300 mg PO TID 12/30/23 04/27/24 insulin glargine 100 unit/mL (3 10 unit SUBCUT BID PRN 12/30/23 04/27/24 mL) subcutaneous pen (Basaglar Hyperglycemia KwikPen U-100 Insulin) potassium chloride 10 mEq 10 meq PO BID 12/30/23 04/27/24 tablet,extended release tizanidine 2 mg capsule 2 mg PO BID 12/30/23 04/27/24 tramadol 50 mg tablet 100 mg PO DAILY PRN Pain 12/30/23 04/27/24 acetaminophen 500 mg tablet 1,000 mg PO QID PRN Pain 03/24/24 04/27/24 biotin 2,500 mcg tablet 1,250 mcg PO DAILY 03/24/24 04/27/24 calcium carbonate-vitamin D3 600 1 tab PO DAILY 03/24/24 04/27/24 mg-125 unit tablet ferrous sulfate 325 mg (65 mg 325 mg PO DAILY 03/24/24 04/27/24 iron) tablet Previous Rx's Medication Instructions Recorded zanubrutinib 80 mg capsule 160 mg (2 x 80 mg) PO BID #120 caps 04/01/24 (Brukinsa) polyethylene glycol 3350 17 17 g PO DAILY #510 grams 04/22/24 gram/dose oral powder (Miralax) Allergies Allergy/AdvReac Type Severity Reaction Status Date / Time guaifenesin Allergy Intermediate ALGY-Hives Verified 04/21/24 09:40 iodine Allergy Intermediate ALGY-Hives Verified 04/21/24 09:40 levofloxacin Allergy Intermediate ALGY-Hives Verified 04/21/24 09:40 meloxicam [From Mobic] Allergy Intermediate ALGY-Hives Verified 04/21/24 09:40 morphine Allergy Intermediate ALGY-Hives Verified 04/21/24 09:40 nitrofurantoin Allergy Intermediate ALGY-Hives Verified 04/21/24 09:40 [From Macrobid] prednisone Allergy Intermediate ALGY-Hives Verified 04/21/24 09:40 hydrocodone Allergy ALGY-Rash Verified 04/27/24 12:20 Review of Systems 2 Const: Denies: fever(s) or chills Card: Denies: chest pain Resp: Denies: dyspnea GI: Denies: abdominal pain : Denies: dysuria, urinary frequency or urinary urgency Musc: Denies: neck pain or back pain Skin/Breast: Denies: rash PFSH ED 2 PFSH: Medical History Atrial fibrillation Chronic lymphocytic leukemia GERD (gastroesophageal reflux disease) Hypogammaglobulinemia Peripheral neuropathy Type 2 diabetes mellitus Undifferentiated pleomorphic sarcoma Surgical History History of cancer surgery (10/21/22) 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 and with split thickness skin graft History of ear surgery History of hysterectomy History of permanent cardiac pacemaker placement Presence of Watchman left atrial appendage closure device Status post total right knee replacement Social History Smoking and tobacco/nicotine status: former use of tobacco/nicotine Quit status (tobacco/nicotine): has quit using Year quit tobacco: 1983 Former quit date comment: 1 year total use Second hand smoke exposure: Yes Physical Exam 2 Const: COMMON NORMALS: no acute distress GENERAL APPEARANCE: cooperative and comfortable ORIENTATION/CONSCIOUSNESS: Yes awake, Yes oriented to person, Yes oriented to place and Yes oriented to time HENMT: COMMON NORMALS: normocephalic, atraumatic and hearing grossly normal bilaterally HEAD & SCALP: normocephalic and atraumatic Resp: COMMON NORMALS: normal respiratory effort, No retractions, No use of accessory muscles and clear to auscultation bilaterally AUSCULTATION: clear to auscultation bilaterally Cardio: COMMON NORMALS: regular rate, regular rhythm and No murmurs present (Cardio) RATE: regular rate RHYTHM: regular rhythm GI: COMMON NORMALS: Soft to palpation and No hepatosplenomegaly present A USCULTATION: Yes normoactive bowel sounds PALPATION: Yes Soft to palpation, No Tenderness to palpation present (GI), No Guarding due to palpation present (GI) and Yes No hepatosplenomegaly present Extremity: COMMON NORMALS: normal to inspection, capillary refill normal, no clubbing, cyanosis or edema, no calf tenderness and no pedal edema Neuro: SENSORIUM/ORIENTATION: Yes oriented to person, Yes oriented to place and Yes oriented to time Skin: COMMON NORMALS: no rashes or lesions noted GENERAL SKIN EXAM: no rashes or lesions noted Course 2 Vital Signs: Vital signs: Vital Signs Temperature 98.2 F 04/27/24 12:14 Pulse Rate 72 04/27/24 16:55 Respiratory Rate 17 04/27/24 14:50 Blood Pressure 150/79 04/27/24 16:30 Pulse Oximetry 98 04/27/24 16:55 Oxygen Delivery Me thod Nasal Cannula 04/27/24 15:30 Oxygen Flow Rate 2 04/27/24 15:30 MDM - SOB/Dyspnea Medical Decision Making Patient has presumed tumor in the lung saunders but affecting the left lung in particular she has had several thoracentesis over the last few weeks. She had diagnostic done in [place] they are still waiting on results. She has significant worsening today on her chest x-ray with diminished breath sounds on that side and shortness of breath. Dr. Friedman did a thoracentesis which removed a liter of bloody fluid. She did get some relief from this. 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 Medical Records I reviewed the patient's medical records. Lab Data I reviewed the patient's lab results. 04/27/24 12:40 04/27/24 12:40 Labs/Radiology: Radiology Impressions Chest CTA 04/27/24 12:58 IMPRESSION: 1. No central pulmonary emboli. Beyond the segmental branches the opacification becomes more limited especially at the lung bases. Tiny peripheral emboli cannot be excluded. 2. Moderate increase in size of the LEFT pleural effusion with additional areas of atelectasis resulting in volume loss in the LEFT thorax. 3. Mild cardiomegaly. 4. Tricuspid regurgitation and hepatic veins. Thoracentesis Ultrasound 04/27/24 13:04 IMPRESSION: 1. Uncomplicated ultrasound-guided LEFT thoracentesis. Removal of 1100 cc bloody fluid 2. No pneumothorax on postthoracentesis radiograph Chest X-Ray 04/27/24 15:28 IMPRESSION: 1. Status post LEFT thoracentesis. No pneumothorax. Improved aeration in the LEFT upper lobe. 2. Persistent LEFT pleural fluid with consolidation in the LEFT midlung and LEFT lower lobe. Laboratory Results WBC 6.11 10^3/uL (3.29-11.43) 04/27/24 12:40 RBC 3.32 10^6/uL (3.85-5.65) L 04/27/24 12:40 Hgb 9.40 g/dL (11.27-16.99) L 04/27/24 12:40 Hct 30.6 % (36-47) L 04/27/24 12:40 MCV 92.2 fl (85-98) 04/27/24 12:40 MCH 28.3 pg (27-33) 04/27/24 12:40 MCHC 30.7 g/dL (30-55) 04/27/24 12:40 RDW 15.6 % (12.1-15.1) H 04/27/24 12:40 Plt Count 144 10^3/cmm (157-399) L 04/27/24 12:40 MPV 12.1 fL (7.4-10.4) H 04/27/24 12:40 Neut % (Auto) 59.6 % 04/27/24 12:40 Lymph % (Auto) 30.9 % 04/27/24 12:40 [place] % (Auto) 8.0 % 04/27/24 12:40 Eos % (Auto) 0.8 % 04/27/24 12:40 Baso % (Auto) 0.2 % 04/27/24 12:40 Neut # (Auto) 3.64 10^3/uL (1.8-7.7) 04/27/24 12:40 Lymph # (Auto) 1.9 10^3/uL (0.8-4.8) 04/27/24 12:40 [place] # (Auto) 0.5 10^3/uL (0.2-0.9) 04/27/24 12:40 Eos # (Auto) 0.1 10^3/uL (0.0-0.8) 04/27/24 12:40 Baso # (Auto) 0.0 10^3/uL (0.0-0.1) 04/27/24 12:40 Nucleated RBC % (auto) 0 % 04/27/24 12:40 Nucleated RBCs # 0.0 /100WBC 04/27/24 12:40 PT 14.50 SECONDS (12.1-14.9) 04/27/24 10:11 INR 1.09 (0.8-1.2) 04/27/24 10:11 Specimen Type Arterial 04/27/24 13:18 Sample Site Brachial, right 04/27/24 13:18 ABG pH 7.42 (7.35-7.45) 04/27/24 13:18 ABG pCO2 46.3 mmHg (35-45) H 04/27/24 13:18 ABG pO2 84.1 mmHg (80.0-100.0) 04/27/24 13:18 ABG PO2/FiO2 Ratio 262 04/27/24 13:18 ABG HCO3 30.3 mmol/L (22-26) H 04/27/24 13:18 ABG O2 Saturation 97.2 04/27/24 13:18 ABG Base Excess 5.2 mmol/L (-2.0-2.0) H 04/27/24 13:18 Tucker Test N/a 04/27/24 13:18 A-a O2 Gradient 11.4 mmHg (5-10) H 04/27/24 13:18 Hematocrit 28.7 % (37-47) L 04/27/24 13:18 Hgb O2 Saturation 95.3 % (95-100) 04/27/24 13:18 Carboxyhemoglobin 1.8 %THgb (0.4-20.1) 04/27/24 13:18 Methemoglobin 0.1 % (0.4-1.5) L 04/27/24 13:18 Total Hemoglobin 9.4 g/dL (12-16) L 04/27/24 13:18 Sodium 141.0 mmol/L (131-143) 04/27/24 13:18 Potassium 4.3 mmol/L (3.5-5.0) 04/27/24 13:18 Glucose 164.0 mg/dL (70-115) H 04/27/24 13:18 Ionized Calcium 1.2 mmol/L (1.1-1.4) 04/27/24 13:18 O2 Delivery Device Nc 04/27/24 13:18 O2 Liters/Min 3.0 % 04/27/24 13:18 FiO2 32.0 % 04/27/24 13:18 Cylinder Valve Repairer ID Amh 04/27/24 13:18 Sodium 142 mmol/L (136-145) 04/27/24 12:40 Potassium 4.6 mmol/L (3.5-5.1) 04/27/24 12:40 Chloride 101 mmol/L (98-107) 04/27/24 12:40 Carbon Dioxide 29 mmol/L (22-29) 04/27/24 12:40 Anion Gap 16.6 (5-19) 04/27/24 12:40 BUN 23 mg/dL (8-23) 04/27/24 12:40 Creatinine 0.9 mg/dL (0.5-0.9) 04/27/24 12:40 GFR Calculation Not Reportable 04/27/24 12:40 Glucose 174 mg/dL (65-115) H 04/27/24 12:40 POC Glucose 181 mg/dL (70-110) H 04/27/24 12:51 Calculated Osmolality 302 mOsm/kg (285-295) H 04/27/24 12:40 Lactic Acid 1.3 mmol/L (0.5-2.2) 04/27/24 12:40 Calcium 8.9 mg/dL (8.5-10.5) 04/27/24 12:40 Total Bilirubin 0.4 mg/dL (0.15-1.2) 04/27/24 12:40 AST 9 U/L (0-32) 04/27/24 12:40 ALT 9 U/L (0-33) 04/27/24 12:40 Alkaline Phosphatase 44 U/L (35-105) 04/27/24 12:40 Total Protein 6.1 g/dL (6.6-8.7) L 04/27/24 12:40 Albumin 3.8 g/dL (3.5-5.2) 04/27/24 12:40 Globulin 2.3 g/dL (1.3-4.6) 04/27/24 12:40 Digoxin 0.9 ng/mL (0.6-1.2) 04/27/24 12:40 All radiology interpretation(s) finalized by discharge Discharge Plan Discharge Patient Disposition: Home Clinical Impression: Pleural effusion, left Condition: Stable Prescriptions: No Action aspirin [Adult Low Dose Aspirin] 81 mg tablet,delayed release (DR/EC) 81 mg PO DAILY Patient Comments: AM cetirizine [Zyrtec] 10 mg tablet 10 mg PO DAILY Patient Comments: AM furosemide 40 mg tablet 40 mg PO DAILY Patient Comments: AM tizanidine 2 mg capsule 2 mg PO BID Patient Comments: AM and PM gabapentin 300 mg capsule 300 mg PO TID potassium chloride 10 mEq tablet extended release 10 meq PO BID Patient Comments: AM and PM digoxin 125 mcg (0.125 mg) tablet 125 mcg PO DAILY Patient Comments: lunchtime atorvastatin 40 mg tablet 40 mg PO DAILY Patient Comments: PM amlodipine 5 mg tablet 5 mg PO DAILY Patient Comments: PM tramadol 50 mg tablet 100 mg PO DAILY PRN (Reason: Pain) insulin glargine [Basaglar KwikPen U-100 Insulin] 100 unit/mL (3 mL) insulin pen 10 unit SUBCUT BID PRN (Reason: Hyperglycemia) Patient Comments: 10 units in AM, 15 units PM, PRN if blood sugar is >200 Brukinsa 80 mg capsule 160 mg PO BID Qty: 120 0RF acetaminophen 500 mg Tablet 1,000 mg PO QID PRN (Reason: Pain) ferrous sulfate 325 mg (65 mg iron) Tablet 325 mg PO DAILY biotin 2,500 mcg Tablet 1,250 mcg PO DAILY Calcium 600 + D(3) 600-125 mg-unit Tablet 1 tab PO DAILY polyethylene glycol 3350 [Miralax] 17 gram/dose powder 17 g PO DAILY Qty: 510 0RF Rx Instructions: Take 1 scoop daily while taking pain medications. Discharge Orders: Discharge ED (Routine); Ordered 04/27/24 Ordered By: Payam Coburn Referrals: Trey Zayas [Primary Care Provider] - Discharge Diet: Usual diet Discharge Activity: Increase activity as tolerated Patient Instructions: Opioid Safety, Pain Management Activity Restrictions/Additional Instructions: Thank you for choosing [facility] for your healthcare needs today. It is very important that you follow up as instructed or that you return to the Emergency Department should you have concerns or if your condition changes or worsens in any way. You are seen today with complaints shortness of breath your large left pleural effusion thoracentesis was done to draw fluid. Strongly recommend that you follow-up with your chucking lathe operator as soon as you are able for long-term management of this as this is likely to recur again. Coding Level of Care Code ED Gear Room Keeper for Ivania Holman
--- NOTE | 2024-04-27 12:58 | CT_ITS ---
WS: [id number] CT CHEST ANGIOGRAPHY WITH REFORMATS HISTORY: Dyspnea hypoxia TECHNIQUE: Contiguous axial images are obtained through the chest during arterial injection of intrav enous contrast. Images are reconstructed to evaluate the pulmonary arteries. MIP imaging also reviewe d. All CT scans at [facility] use at least one of these dose optimization techniques: automat ed exposure control; mA and/or kV adjustment per patient size (includes targeted exams where dose is matched to clinical indication); or iterative reconstruction. CONTRAST: Omnipaque 350; 100 mL IV. DLP: 457.31 mGy.cm COMPARISON: 04/22/2024 Breathing motion artifact. Good opacification of the central pulmonary arteries. Better opacification on the RIGHT pulmonary art eries. No filling defects or pulmonary embolism. Cannot exclude small peripheral emboli. Atherosclero sis aorta. Mild cardiomegaly. No pneumothorax. Moderate to large LEFT pleural effusion. Volume loss in the LEFT thorax. There is atelectasis central ly resulting in LEFT volume loss. Mild pulmonary edema. Partially loculated pleural effusion extends along the mediastinum. 12 mm RIGHT paratracheal lymph node. LEFT atrial appendage occlusion device. Tricuspid regurgitation into the hepatic veins. Mild LEFT adrenal thickening suspect adenoma in the LEFT adrenal gland. Heavy calcification in the splenic artery and suprarenal aorta. CT/CT angio chest PE protcl [id number] IMPRESSION: 1. No central pulmonary emboli. Beyond the segmental branches the opacificatio n becomes more limited especially at the lung bases. Tiny peripheral emboli can not be excluded. 2. Moderate increase in size of the LEFT pleural effusion with additional area s of atelectasis resulting in volume loss in the LEFT thorax. 3. Mild cardiomegaly. 4. Tricuspid regurgitation and hepatic veins.
--- NOTE | 2024-04-27 13:04 | US_ITS ---
WS: [email or web address] ULTRASOUND-GUIDED THORACENTESIS CLINICAL INFORMATION: L pleural effusion PROCEDURE: Informed consent: The risks, benefits, and alternatives of the procedure were discussed with the jesus ent. Verbal and written consent was obtained. Timeout: A timeout was performed to confirm the correct patient, procedure, and site. Site: LEFT chest Preparation: A suitable skin site was identified. The patient was prepped and draped in usual sterile fashion. Lidocaine 1% was used for local anesthesia. Catheter: 4 Portuguese One-Step catheter. Fluid Volume: 1100 ml Color: Red bloody Complications: None. / thoracentesis [id number] IMPRESSION: 1. Uncomplicated ultrasound-guided LEFT thoracentesis. Removal of 1100 cc bloo dy fluid 2. No pneumothorax on postthoracentesis radiograph
[2024-04-27 13:07] LABS: Basophils % 0.2 %; Eosinophils # 0.1 10^3/uL (0.0-0.8); Eosinophils % 0.8 %; Hematocrit 30.6 % (36-47); Lymphocytes # 1.9 10^3/uL (0.8-4.8); Lymphocytes % 30.9 %; Mean Corpuscular HGB Conc 30.7 g/dL (30-55); Mean Corpuscular Hemoglobin 28.3 pg (27-33); Mean Corpuscular Volume 92.2 fl (85-98); Mean Platelet Volume 12.1 fL (7.4-10.4); Monocytes # 0.5 10^3/uL (0.2-0.9); Neutrophils # 3.64 10^3/uL (1.8-7.7); Neutrophils % 59.6 %; Nucleated Red Blood Cells % 0 %; Platelet Count 144 10^3/cmm (157-399); Red Blood Count 3.32 10^6/uL (3.85-5.65); Red Cell Distribution Width 15.6 % (12.1-15.1); White Blood Count 6.11 10^3/uL (3.29-11.43)
[2024-04-27 13:16] LABS: Alanine Aminotransferase 9 U/L (0-33); Albumin Level 3.8 g/dL (3.5-5.2); Alkaline Phosphatase 44 U/L (35-105); Anion Gap 16.6 (5-19); Aspartate Amino Transferase 9 U/L (0-32); Blood Urea Nitrogen 23 mg/dL (8-23); Calcium 8.9 mg/dL (8.5-10.5); Carbon Dioxide 29 mmol/L (22-29); Chloride 101 mmol/L (98-107); Creatinine Clr Calc Pharmacy 48.2792; Globulin 2.3 g/dL (1.3-4.6); Glucose 174 mg/dL (65-115); Osmolality Calculated 302 mOsm/kg (285-295); Potassium 4.6 mmol/L (3.5-5.1); Sodium 142 mmol/L (136-145); Total Bilirubin 0.4 mg/dL (0.15-1.2); Total Protein 6.1 g/dL (6.6-8.7)
[2024-04-27 13:17] LABS: Lactic Sepsis W/Reflex 1.3 mmol/L (0.5-2.2)
[2024-04-27 13:29] LABS: ABG PCO2 46.3 mmHg (35-45); ABG PH Result 7.42 (7.35-7.45); Alveolar-Arterial Oxygen Gradi 11.4 mmHg (5-10); Arterial Blood Gas Hematocrit 28.7 % (37-47); Base Excess ABG 5.2 mmol/L (-2.0-2.0); Blood Gas Operator Identificat AMH; Blood Gas Sample Site Brachial, right; Blood Gas Sample Type Arterial; Carboxyhemoglobin 1.8 %THgb (0.4-20.1); HCO3 ABG 30.3 mmol/L (22-26); HGB O2 Sat 95.3 % (95-100); Ionized Calcium Level - ABG 1.2 mmol/L (1.1-1.4); Methemoglobin 0.1 % (0.4-1.5); Oxygen Device NC; Oxygen Saturation ABG 97.2; PO2 ABG 84.1 mmHg (80.0-100.0); PO2 FiO2 Ratio Arterial Blood 262; Potassium Level - ABG 4.3 mmol/L (3.5-5.0); Total Hemoglobin 9.4 g/dL (12-16)
[2024-04-27 13:43] LABS: INR 1.09 (0.8-1.2)
[2024-04-27] MEDS: diphenhydrAMINE 50 mg/mL SDV 1mL IVP (13:55)
[2024-04-27] MEDS: methylPREDNISolone sod succ 40 mg/mL INJ IVP (13:59)
[2024-04-27] MEDS: iohexol 350 mg/mL 500 mL Btl (per mL) IV (14:13)
[2024-04-27 15:11] LABS: Digoxin 0.9 ng/mL (0.6-1.2)
[2024-04-27] MEDS: lidocaine 1% 10 ML INJ 20 ML INJECTION (15:20)
--- NOTE | 2024-04-27 15:28 | XR_ITS ---
WS: [id number] CHEST XRAY TECHNIQUE: Portable chest. CLINICAL INFORMATION: post thoracentesis COMPARISON: 04/27/2024 FINDINGS: Heart: Cardiomegaly. Aortic calcification. Lungs: Post thoracentesis. Improved aeration of the LEFT upper lobe. No pneumothorax. Persistent pleu ral fluid with consolidation in the LEFT midlung and LEFT lower lobe. RIGHT lung is well aerated. Bones: Osteopenia. XR/XR chest 1V portable [id number] IMPRESSION: 1. Status post LEFT thoracentesis. No pneumothorax. Improved aeration in the L EFT upper lobe. 2. Persistent LEFT pleural fluid with consolidation in the LEFT midlung and LE FT lower lobe.
== END 2024-04-27 17:20 | disposition home or self-care (01) ==
PROVIDERS: Emergency Provider Family Medicine; PCP Family Medicine
DX: J90 Pleural effusion, not elsewhere classified (principal); R91.8 Other nonspecific abnormal finding of lung field; Z99.81 Dependence on supplemental oxygen; Z85.89 Personal history of malignant neoplasm of other organs and systems
CPT/HCPCS: 32555; 36415; 36416; 36600; 71045; 71275; 80051; 80053; 80162; 82330; 82805; 82962; 83605; 85025; 85610; 87040; 96374; 96375; 99285; 99291; J1200; J2919

== ENCOUNTER 2024-04-29 11:26 | Day surgery (SDC) | payer MEDICARE, BC, SELFPAY ==
--- NOTE | 2024-04-29 12:00 | US_ITS ---
WS: [email or web address] ULTRASOUND-GUIDED THORACENTESIS CLINICAL INFORMATION: PLEURAL EFFUSION LEFT PROCEDURE: Informed consent: The risks, benefits, and alternatives of the procedure were discussed with the jesus ent. Verbal and written consent was obtained. Timeout: A timeout was performed to confirm the correct patient, procedure, and site. Site: LEFT chest Preparation: A suitable skin site was identified. The patient was prepped and draped in usual sterile fashion. Lidocaine 1% was used for local anesthesia. Catheter: 4 Polish One-Step catheter. Fluid Volume: 1000 ml Color: Dark bloody Complications: None. Patient disposition: Discharged from the department in stable condition. / thoracentesis [id number] IMPRESSION: Uncomplicated ultrasound-guided LEFT thoracentesis. Removal of 1000 cc dark blo jordon fluid. No pneumothorax.
[2024-04-29 12:16] VITALS: BP 151/64; PULSE 84; RESP 20; TEMP 36.1; O2SAT 96; BMI 29.5
--- NOTE | 2024-04-29 12:51 | XR_ITS ---
WS: [email or web address] CHEST XRAY TECHNIQUE: Portable chest. CLINICAL INFORMATION: POST THORACENTESIS COMPARISON: 04/27/2024 FINDINGS: Heart: Cardiomegaly. Aortic calcification. Lungs: Improved LEFT pleural effusion status post thoracentesis. No pneumothorax. Persistent consolid ation LEFT lower lobe with a small amount of residual pleural fluid. RIGHT lung is well aerated. Bones: Osteopenia. XR/XR chest 1V portable [id number] IMPRESSION: Improved LEFT pleural effusion the status post thoracentesis. No pneumothorax.
[2024-04-29 13:41] LABS: Cyto Order Verification No Order
[2024-04-29 13:42] LABS: Appearance, Pleural Fluid BLOODY (CLEAR); Color, Pleural Fluid Red (Pale Yellow)
[2024-04-29 13:44] LABS: Mononuclear %, Pleural Fluid 56 %; Polynuclear Cells, Pleural % 44 %
[2024-04-29 13:53] LABS: PATH Referal YES
[2024-04-29 14:55] LABS: LDH Body Fluid 140 U/L
[2024-04-29 14:58] LABS: Total Protein Pleural Fluid 3.9 g/dL
== END 2024-04-29 13:26 | disposition home or self-care (01) ==
PROVIDERS: Radiology Neuroradiology; Family Provider Internal Medicine Critical Care Medicine; PCP Family Medicine; Visit Provider Internal Medicine Medical Oncology
PROC: (CPT 32554; principal; 2024-04-29 13:00)
DX: J90 Pleural effusion, not elsewhere classified (principal)
CPT/HCPCS: 32555; 71045; 80503; 82945; 83615; 84157; 87070; 87075; 87205; 89050

== ENCOUNTER 2024-05-24 09:24 | Oncology outpatient (recurring) (ONCR) | payer MEDICARE, BC, SELFPAY ==
[2024-05-24] VITALS (8 sets, daily range): BP systolic 120–139; BP diastolic 68–84; PULSE 67–95; RESP 16; TEMP 35.8–36.4; O2SAT 93–97
[2024-05-24 09:58] LABS: Basophils % 0.4 %; Eosinophils % 0.9 %; Hematocrit 27.2 % (36-47); Lymphocytes # 1.5 10^3/uL (0.8-4.8); Lymphocytes % 31.7 %; Mean Corpuscular HGB Conc 28.7 g/dL (30-55); Mean Corpuscular Hemoglobin 25.3 pg (27-33); Mean Corpuscular Volume 88.3 fl (85-98); Mean Platelet Volume 11.7 fL (7.4-10.4); Monocytes # 0.3 10^3/uL (0.2-0.9); Monocytes % 5.6 %; Neutrophils # 2.83 10^3/uL (1.8-7.7); Nucleated Red Blood Cells % 0 %; Platelet Count 109 10^3/cmm (157-399); Red Blood Count 3.08 10^6/uL (3.85-5.65); Red Cell Distribution Width 15.7 % (12.1-15.1); White Blood Count 4.64 10^3/uL (3.29-11.43)
[2024-05-24 10:47] LABS: Alanine Aminotransferase 9 U/L (0-33); Albumin Level 3.2 g/dL (3.5-5.2); Alkaline Phosphatase 52 U/L (35-105); Anion Gap 13.3 (5-19); Aspartate Amino Transferase 7 U/L (0-32); Blood Urea Nitrogen 24 mg/dL (8-23); Calcium 8.2 mg/dL (8.5-10.5); Carbon Dioxide 27 mmol/L (22-29); Chloride 99 mmol/L (98-107); Creatinine Clr Calc Pharmacy 38.7243; Globulin 1.8 g/dL (1.3-4.6); Glucose 233 mg/dL (65-115); Lactate Dehydrogenase 107 U/L (135-214); Osmolality Calculated 292 mOsm/kg (285-295); Potassium 4.3 mmol/L (3.5-5.1); Sodium 135 mmol/L (136-145); Total Bilirubin 0.3 mg/dL (0.15-1.2)
[2024-05-24] MEDS: diphenhydrAMINE 25 mg Capsule PO (12:49)
[2024-05-24] MEDS: acetaminophen 325 mg Tablet 650 MG PO (12:49)
[2024-05-24] MEDS: immune globulin (Privigen ONC) 20 GM, immune globulin (Privigen-ONC) 10 GM in empty fle... IV (12:55)
--- NOTE | 2024-05-24 15:02 | XRR_ITS ---
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 Views: 2 views. COMPARISON: CR XR chest 1V portable [id number] 04/29/2024 1:06 PM FINDINGS: Tubes, catheters and devices: There is a metallic device projecting over the left atrial appendage. There is a metallic device in the right ventricular apex. Lungs: There is no consolidation. Pleural spaces: There is no pleural effusion or pneumothorax. Heart/Mediastinum: Cardiomediastinal contours are unremarkable. Bones/joints: Bones are unremarkable. XR/XR chest 2V* [id number] IMPRESSION: No acute findings.
== END 2024-05-27 23:59 | disposition home or self-care (01) ==
PROVIDERS: Nurse Practitioner Family; Family Provider Internal Medicine Critical Care Medicine; PCP Family Medicine; Visit Provider Internal Medicine Hematology & Oncology
DX: Z53.9 Procedure and treatment not carried out, unspecified reason (principal); C91.10 Chronic lymphocytic leukemia of B-cell type not having achieved remission; D80.1 Nonfamilial hypogammaglobulinemia; Z79.620 Long term (current) use of immunosuppressive biologic; Z79.899 Other long term (current) drug therapy; Z87.891 Personal history of nicotine dependence; J90 Pleural effusion, not elsewhere classified
CPT/HCPCS: 71046; 80053; 83615; 85025; 96365; 96366; 99214; J1459

== ENCOUNTER 2024-05-28 15:29 | Outpatient (CLI) | payer MEDICARE, BC, SELFPAY | END 2024-05-28 15:30 | disposition home or self-care (01) | PROVIDERS: PCP Family Medicine; Visit Provider Family Medicine | DX: J91.8 Pleural effusion in other conditions classified elsewhere (principal) | CPT/HCPCS: 85025 ==

== ENCOUNTER → 2024-06-08 14:19 | Outpatient (BNVA) | payer MEDICARE, BC, SELFPAY | PROVIDERS: PCP Family Medicine; Visit Provider Dermatology | DX: L90.5 Scar conditions and fibrosis of skin (principal); Z85.831 Personal history of malignant neoplasm of soft tissue; L57.0 Actinic keratosis; L21.8 Other seborrheic dermatitis; L82.1 Other seborrheic keratosis; L82.0 Inflamed seborrheic keratosis; D69.2 Other nonthrombocytopenic purpura; L85.3 Xerosis cutis | CPT/HCPCS: 17110; 99214 ==

== ENCOUNTER 2024-06-21 08:55 | Oncology outpatient (recurring) (ONCR) | payer MEDICARE, BC, SELFPAY ==
[2024-06-21] VITALS (10 sets, daily range): BP systolic 125–176; BP diastolic 63–96; PULSE 71–100; RESP 16–17; TEMP 36.2–36.6; O2SAT 91–98
[2024-06-21 10:06] LABS: Hematocrit 27.9 % (36-47); Mean Corpuscular HGB Conc 27.6 g/dL (30-55); Mean Corpuscular Volume 79.7 fl (85-98); Mean Platelet Volume 12.5 fL (7.4-10.4); Platelet Count 92 10^3/cmm (157-399); Red Cell Distribution Width 16.9 % (12.1-15.1); White Blood Count 4.46 10^3/uL (3.29-11.43)
[2024-06-21 10:12] LABS: Alanine Aminotransferase 8 U/L (0-33); Albumin Level 3.6 g/dL (3.5-5.2); Alkaline Phosphatase 39 U/L (35-105); Anion Gap 15.5 (5-19); Aspartate Amino Transferase 7 U/L (0-32); Blood Urea Nitrogen 22 mg/dL (8-23); Calcium 8.9 mg/dL (8.5-10.5); Carbon Dioxide 27 mmol/L (22-29); Chloride 103 mmol/L (98-107); Creatinine Clr Calc Pharmacy 41.8494; Globulin 1.7 g/dL (1.3-4.6); Glucose 153 mg/dL (65-115); Lactate Dehydrogenase 109 U/L (135-214); Osmolality Calculated 298 mOsm/kg (285-295); Potassium 4.5 mmol/L (3.5-5.1); Sodium 141 mmol/L (136-145); Total Bilirubin 0.4 mg/dL (0.15-1.2); Total Protein 5.3 g/dL (6.6-8.7)
[2024-06-21] MEDS: diphenhydrAMINE 25 mg Capsule PO (10:12)
[2024-06-21] MEDS: immune globulin (Privigen ONC) 20 GM, immune globulin (Privigen-ONC) 10 GM in empty fle... IV (11:03)
[2024-06-21 11:06] LABS: Absolute Neutrophil 2.8 10^3/cmm (1.4-6.5); Absolute Segmented Neutrophil 2.6 10/cmm (1.6-7.1); Band Neutrophils Absolute 0.1 10^3/cmm (0.0-1.2); Eosinophils 1 %; Lymphocytes 19 %; Lymphocytes Absolute 1.2 10^3/cmm (1.2-3.4); Platelet Estimate Decreased (Normal); Segmented Neutrophils 59 %; Slide Review Slide Review Perform; Total Cells Counted 100 (0-100)
--- NOTE | 2024-06-21 13:22 | XR_ITS ---
WS: [id number] Chest 2 views, 06/21/2024 Clinical Data: past pleural effusion Comparison: Two-view chest, 05/24/2024 Findings: No nodules or masses are seen. There is pleural reaction at the left lung base. The heart is normal. The pulmonary vascularity is not increased. No pneumonia or pneumothorax is seen. There is a metal device projecting over the left cardiac border unchanged. There is also a metal device in th e tip of the right ventricle unchanged. The aortic arch and descending thoracic aorta show calcificat ion and tortuosity. There are right upper quadrant cholecystectomy clips. XR/XR chest 2V* [id number] Impression: 1. Atherosclerosis. 2. Metal cardiology devices projecting over the left cardiac border and right v entricle unchanged.
== END 2024-06-26 23:59 | disposition home or self-care (01) ==
PROVIDERS: PCP Family Medicine; Visit Provider Internal Medicine Hematology & Oncology
DX: Z79.899 Other long term (current) drug therapy; J90 Pleural effusion, not elsewhere classified; C91.10 Chronic lymphocytic leukemia of B-cell type not having achieved remission; D80.1 Nonfamilial hypogammaglobulinemia; I70.90 Unspecified atherosclerosis
CPT/HCPCS: 71046; 78815; 80053; 83615; 85007; 85025; 96365; 96366; A9552; J1459

== ENCOUNTER → 2024-07-09 11:30 | Outpatient (BNVA) | payer MEDICARE, BC, SELFPAY | PROVIDERS: PCP Family Medicine; Visit Provider Podiatrist Foot & Ankle Surgery | DX: L60.3 Nail dystrophy (principal); G62.9 Polyneuropathy, unspecified; E11.42 Type 2 diabetes mellitus with diabetic polyneuropathy; Z79.4 Long term (current) use of insulin | CPT/HCPCS: 11721 ==

== ENCOUNTER 2024-07-19 10:00 | Oncology outpatient (recurring) (ONCR) | payer MEDICARE, BC, SELFPAY ==
--- NOTE | 2024-07-02 10:06 | PETR_ITS ---
PROCEDURE INFORMATION: Exam: PET/CT Skull Base to Mid-thigh Exam date and time: 07/02/2024 11:55 AM Age: 84 years old Clinical indication: Abnormal findings; Pulmonary nodules on CT scan; Prior surgery; Surgery date: 6+ months; Surgery type: Pacemaker, and watchmen. History of soft tissue sarcoma or in the right leg diagnosed in September 2022 post prior resection and chemoradiation. 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 LABS AND CLINICAL REPORTS: Glucose: 126 mg/dl Treatment strategy for malignancy (PET staging): Restaging (PS) TECHNIQUE: Imaging protocol: Following at least four-hour fasting and following the injection of radiopharmaceutical, low dose CT images were obtained. Then, PET images were obtained. Attenuation corrected images were constructed using the CT scan. Fused images of PET and CT were reviewed. The standardized uptake values (SUV) reported below are maximum values within a region of interest, expressed in gm/ml. Exam includes orbital meatal line to mid-thigh. SUV normalization method: BodyWeight Radiopharmaceutical: 10.91 mCi F-18 FDG (Fluorodeoxyglucose), IV. Time of imaging post radiopharmaceutical administration: 54 minutes Injection site: left wrist COMPARISON: PT PET whole body 03/09/2024 and 05/22/2023, CT chest 04/18/2024 and 04/22/2024, CTA chest 04/27/2024 FINDINGS: Catheters, tubes and devices: Stable Watchman filter in the left atrium appendage. Stable wireless small device within the right ventricle. Brain: Normal physiologic uptake. Pharynx: No abnormal uptake. Larynx: No abnormal uptake. Lungs, pleura and trachea: No abnormal uptake. Stable non FDG avid bilateral lung nodules noted again unchanged since 05/22/2023 (1.2 cm nodule in the superior segment of the left lower lobe on series 201, image 454, 0.9 cm left lower lobe nodule on image 407, 0.8 cm right lower lobe nodule on image 422). There is mild right pleural effusion increased in comparison with 04/27/2024. Minimal left pleural effusion has significantly decreased since 04/27/2024. Heart: No abnormal uptake. Stable cardiomegaly. Minimal pericardial effusion new since 04/27/2024. Mediastinal space: No abnormal uptake. Liver: No abnormal uptake. Maximum uptake is 3.4 SUV. Gallbladder and biliary ducts: No abnormal uptake. Status post cholecystectomy. Pancreas: No abnormal uptake. Spleen: No abnormal uptake. No splenomegaly. Adrenal glands: No abnormal uptake. Stable 1.6 cm left adrenal nodule compatible with benign finding, statistically likely a adenoma. Kidneys and ureters: Normal physiologic uptake. No hydronephrosis. Stomach and bowel: No abnormal uptake. Extensive diverticulosis in the sigmoid and descending colon. Intraperitoneal and retroperitoneal spaces: No abnormal uptake. No ascites. Bladder: Normal physiologic uptake. Reproductive: No abnormal uptake. The uterus is absent post surgically. Vasculature: No abnormal uptake. Lymph nodes: No FDG avid lymphadenopathy in the neck, chest, abdomen, pelvis, and extremities. Skeleton: No abnormal uptake in the visualized axial and appendicular skeleton. Soft tissues: Benign muscular uptake in the arms. Stable lipoma in the right adductor muscles in the proximal thigh Other findings: There is a small focus of external contamination in the sheet/blanket overlying patient's body on series 301, image 108. PET/PET skull to thigh SUBS [id number] IMPRESSION: No abnormal radiotracer uptake concerning for malignancy. Lung nodules measuring up to 1.2 cm stable in size since 05/22/2023 are not FDG avid. Minimal pericardial effusion and small right pleural effusion are new since 04/27/2024. Large left pleural effusion present on 04/27/2024 has significantly decreased following thoracentesis and is currently minimal.
[2024-07-19 10:27] VITALS: BP 137/83; PULSE 75; RESP 17; TEMP 36.5; O2SAT 94
[2024-07-19 10:34] LABS: Basophils % 0.2 %; Eosinophils % 0.5 %; Lymphocytes # 2.2 10^3/uL (0.8-4.8); Lymphocytes % 35.6 %; Mean Corpuscular HGB Conc 27.4 g/dL (30-55); Mean Corpuscular Volume 76.7 fl (85-98); Mean Platelet Volume 11.6 fL (7.4-10.4); Monocytes # 0.5 10^3/uL (0.2-0.9); Monocytes % 8.8 %; Neutrophils # 3.34 10^3/uL (1.8-7.7); Neutrophils % 54.2 %; Nucleated Red Blood Cells % 0 %; Platelet Count 112 10^3/cmm (157-399); Red Blood Count 4.43 10^6/uL (3.85-5.65); Red Cell Distribution Width 17.9 % (12.1-15.1); White Blood Count 6.15 10^3/uL (3.29-11.43)
[2024-07-19 10:52] LABS: Alanine Aminotransferase 21 U/L (0-33); Albumin Level 3.7 g/dL (3.5-5.2); Alkaline Phosphatase 44 U/L (35-105); Anion Gap 10.8 (5-19); Aspartate Amino Transferase 15 U/L (0-32); Blood Urea Nitrogen 26 mg/dL (8-23); Calcium 8.9 mg/dL (8.5-10.5); Carbon Dioxide 30 mmol/L (22-29); Chloride 106 mmol/L (98-107); Creatinine Clr Calc Pharmacy 46.6324; Globulin 1.9 g/dL (1.3-4.6); Glucose 221 mg/dL (65-115); Lactate Dehydrogenase 106 U/L (135-214); Osmolality Calculated 306 mOsm/kg (285-295); Potassium 4.8 mmol/L (3.5-5.1); Sodium 142 mmol/L (136-145); Total Bilirubin 0.2 mg/dL (0.15-1.2); Total Protein 5.6 g/dL (6.6-8.7)
[2024-07-19 11:53] LABS: Slide Review Slide Review Perform
[2024-07-19] MEDS: diphenhydrAMINE 25 mg Capsule PO (12:07)
[2024-07-19] MEDS: acetaminophen 325 mg Tablet 650 MG PO (12:07)
[2024-07-19 12:53] VITALS: BP 102/67; PULSE 80; RESP 16; TEMP 36.6; O2SAT 97
[2024-07-19] MEDS: immune globulin (Privigen ONC) 20 GM, immune globulin (Privigen-ONC) 10 GM in empty fle... IV (12:53)
[2024-07-19 13:38] VITALS: BP 113/69; PULSE 82; RESP 16; TEMP 36.6; O2SAT 96
[2024-07-19 14:27] VITALS: BP 107/70; PULSE 75; RESP 16; TEMP 35.8; O2SAT 97
[2024-07-19 15:35] VITALS: BP 125/72; PULSE 91; RESP 17; TEMP 36.6; O2SAT 97
== END 2024-07-27 23:59 | disposition home or self-care (01) ==
PROVIDERS: Internal Medicine Hematology & Oncology; Absent Provider Internal Medicine Critical Care Medicine; PCP Family Medicine; Visit Provider Internal Medicine Medical Oncology
DX: Z53.9 Procedure and treatment not carried out, unspecified reason (principal); C91.10 Chronic lymphocytic leukemia of B-cell type not having achieved remission; D80.1 Nonfamilial hypogammaglobulinemia; Z79.899 Other long term (current) drug therapy; Z92.3 Personal history of irradiation; Z87.891 Personal history of nicotine dependence; Z85.828 Personal history of other malignant neoplasm of skin; D64.9 Anemia, unspecified
CPT/HCPCS: 78815; 80053; 83615; 85025; 96365; 96366; 99214; A9552; J1459

== ENCOUNTER → 2024-08-18 13:50 | Outpatient (BNVA) | payer MEDICARE, BC, SELFPAY | PROVIDERS: PCP Family Medicine; Visit Provider Internal Medicine | DX: I48.91 Unspecified atrial fibrillation (principal); E11.9 Type 2 diabetes mellitus without complications; C91.10 Chronic lymphocytic leukemia of B-cell type not having achieved remission | CPT/HCPCS: 99214 ==

== ENCOUNTER 2024-08-23 13:00 | Oncology outpatient (recurring) (ONCR) | payer MEDICARE, BC, SELFPAY ==
[2024-08-16 10:03] LABS: Basophils % 0.4 %; Eosinophils % 0.4 %; Hematocrit 32.6 % (36-47); Lymphocytes # 1.4 10^3/uL (0.8-4.8); Mean Corpuscular HGB Conc 27.9 g/dL (30-55); Mean Corpuscular Hemoglobin 21.6 pg (27-33); Mean Corpuscular Volume 77.3 fl (85-98); Mean Platelet Volume 11.5 fL (7.4-10.4); Monocytes # 0.4 10^3/uL (0.2-0.9); Monocytes % 8.5 %; Neutrophils # 2.83 10^3/uL (1.8-7.7); Neutrophils % 60.3 %; Nucleated Red Blood Cells % 0 %; Platelet Count 113 10^3/cmm (157-399); Red Blood Count 4.22 10^6/uL (3.85-5.65); Red Cell Distribution Width 21.4 % (12.1-15.1)
[2024-08-16 10:22] LABS: Alanine Aminotransferase 12 U/L (0-33); Albumin Level 3.7 g/dL (3.5-5.2); Alkaline Phosphatase 49 U/L (35-105); Anion Gap 14.9 (5-19); Aspartate Amino Transferase 8 U/L (0-32); Blood Urea Nitrogen 27 mg/dL (8-23); Calcium 8.8 mg/dL (8.5-10.5); Carbon Dioxide 26 mmol/L (22-29); Chloride 101 mmol/L (98-107); Ferritin 20 ng/mL (15-150); Globulin 2.1 g/dL (1.3-4.6); Glucose 192 mg/dL (65-115); Iron 27 ug/dL (37-145); Osmolality Calculated 294 mOsm/kg (285-295); Potassium 4.9 mmol/L (3.5-5.1); Sodium 137 mmol/L (136-145); Total Bilirubin 0.3 mg/dL (0.15-1.2); Total Iron Binding Capacity 297 mcg/dl; Total Protein 5.8 g/dL (6.6-8.7); Unsaturated Iron Binding 270 ug/dL (112-347)
[2024-08-16 10:38] LABS: Vitamin B12 576 pg/mL (232-1245)
[2024-08-16 11:16] LABS: Folate Level 15.4 ng/mL (4.8-37.3)
[2024-08-16] MEDS: diphenhydrAMINE 25 mg Capsule PO (11:25)
[2024-08-16 12:00] VITALS: BP 138/85; PULSE 75; RESP 17; TEMP 36.3; O2SAT 94
[2024-08-16] MEDS: immune globulin (Privigen ONC) 20 GM, immune globulin (Privigen-ONC) 10 GM in empty fle... IV (12:00)
[2024-08-16 12:15] VITALS: BP 141/102; PULSE 70; RESP 16; TEMP 36.3; O2SAT 97
[2024-08-16 13:30] VITALS: BP 122/89; PULSE 80; RESP 17; TEMP 35.9; O2SAT 93
[2024-08-16 14:09] VITALS: BP 116/77; PULSE 90; RESP 17; TEMP 35.9; O2SAT 92
[2024-08-16] MEDS: ferric carboxy (PYXIS) 750 MG in sodium chloride 0.9% (100 ml) 100 ML 345 MG IV (14:28)
[2024-08-16 15:00] VITALS: BP 129/82; PULSE 96; RESP 17; TEMP 36.2; O2SAT 93
[2024-08-23] MEDS: ferric carboxy (PYXIS) 750 MG in sodium chloride 0.9% (100 ml) 100 ML 345 MG IV (13:31)
[2024-08-23 14:11] VITALS: BP 132/87; PULSE 93; RESP 17; TEMP 36.7; O2SAT 93
== END 2024-08-27 23:59 | disposition home or self-care (01) ==
PROVIDERS: Absent Provider Internal Medicine Critical Care Medicine; PCP Family Medicine; Visit Provider Internal Medicine Medical Oncology
DX: Z53.9 Procedure and treatment not carried out, unspecified reason (principal); D50.9 Iron deficiency anemia, unspecified; Z79.899 Other long term (current) drug therapy
CPT/HCPCS: 80053; 82607; 82728; 82746; 83540; 83550; 85025; 96365; 96367; 96374; 99214; J1439; J1459

== ENCOUNTER 2024-09-13 09:37 | Oncology outpatient (recurring) (ONCR) | payer MEDICARE, BC, SELFPAY ==
[2024-09-13 10:31] LABS: Alanine Aminotransferase 11 U/L (0-33); Albumin Level 3.7 g/dL (3.5-5.2); Alkaline Phosphatase 49 U/L (35-105); Basophils % 0.2 %; Blood Urea Nitrogen 25 mg/dL (8-23); Calcium 8.4 mg/dL (8.5-10.5); Carbon Dioxide 27 mmol/L (22-29); Chloride 102 mmol/L (98-107); Creatinine Clr Calc Pharmacy 43.2888; Eosinophils % 0.4 %; Globulin 2.2 g/dL (1.3-4.6); Glucose 210 mg/dL (65-115); Hematocrit 39.8 % (36-47); Lymphocytes # 1.2 10^3/uL (0.8-4.8); Lymphocytes % 26.5 %; Mean Corpuscular HGB Conc 29.9 g/dL (30-55); Mean Corpuscular Hemoglobin 25.7 pg (27-33); Monocytes # 0.3 10^3/uL (0.2-0.9); Monocytes % 6.1 %; Neutrophils # 3.05 10^3/uL (1.8-7.7); Neutrophils % 66.4 %; Nucleated Red Blood Cells % 0 %; Osmolality Calculated 301 mOsm/kg (285-295); Platelet Count 87 10^3/cmm (157-399); Red Blood Count 4.63 10^6/uL (3.85-5.65); Red Cell Distribution Width 26.4 % (12.1-15.1); Sodium 140 mmol/L (136-145); Total Bilirubin 0.4 mg/dL (0.15-1.2); Total Protein 5.9 g/dL (6.6-8.7)
[2024-09-13 10:35] LABS: Anion Gap 15.5 (5-19); Aspartate Amino Transferase 16 U/L (0-32); Potassium 4.5 mmol/L (3.5-5.1)
[2024-09-13 11:07] LABS: Slide Review Slide Review Perform
[2024-09-13 12:28] LABS: Bilirubin Urine Negative (Negative); Blood Urine Trace (Negative); Glucose Urine UA Negative (Normal); Ketones Urine Negative (Negative); Leukocyte Esterase Urine 3+ (Negative); Nitrate Urine Negative (Negative); Protein Urine Negative (Negative); Specific Gravity, Urine 1.009 (1.005-1.030); Urine Appearance Clear (CLEAR); Urine Color Yellow (Yellow); Urobilinogen Urine 0.2 mg/dL (Negative); pH Urine 7.5 (5-7)
[2024-09-13 12:33] LABS: Add Urine Microscopic? YES; Bacteria Urine Trace /hpf; Hyaline Casts Urine 2.46 /lpf; Squamous Epithelial Cell Urine 0-5 /hpf (0-5); WBC Urine 21-50 /hpf (0-5)
[2024-09-13 12:35] LABS: Add Urine Culture? Yes
[2024-09-13] MEDS: diphenhydrAMINE 25 mg Capsule PO (12:46)
[2024-09-13] MEDS: acetaminophen 325 mg Tablet 650 MG PO (12:46)
[2024-09-13 13:00] VITALS: BP 130/78; PULSE 72; RESP 16; TEMP 36.2; O2SAT 95
[2024-09-13] MEDS: immune globulin (Privigen ONC) 20 GM, immune globulin (Privigen-ONC) 10 GM in empty fle... IV (13:02)
[2024-09-13 13:15] VITALS: BP 115/81; PULSE 78; RESP 17; TEMP 37; O2SAT 94
[2024-09-13 14:00] VITALS: BP 131/68; PULSE 90; RESP 18; TEMP 36.6; O2SAT 92
[2024-09-13 15:05] VITALS: BP 131/68; PULSE 90; RESP 18; TEMP 36.6; O2SAT 92
== END 2024-09-24 23:59 | disposition home or self-care (01) ==
PROVIDERS: Nurse Practitioner Family; Absent Provider Internal Medicine Critical Care Medicine; PCP Family Medicine; Visit Provider Internal Medicine Medical Oncology
DX: C91.10 Chronic lymphocytic leukemia of B-cell type not having achieved remission (principal); R23.3 Spontaneous ecchymoses; Z85.831 Personal history of malignant neoplasm of soft tissue; D64.9 Anemia, unspecified; D80.1 Nonfamilial hypogammaglobulinemia; Z79.899 Other long term (current) drug therapy; Z87.891 Personal history of nicotine dependence
CPT/HCPCS: 80053; 81001; 85025; 87077; 87086; 87186; 96365; 96366; 99214; J1459

== ENCOUNTER → 2024-09-28 12:56 | Outpatient (BNVA) | payer MEDICARE, BC, SELFPAY | PROVIDERS: PCP Family Medicine; Visit Provider Podiatrist Foot & Ankle Surgery | DX: E11.42 Type 2 diabetes mellitus with diabetic polyneuropathy (principal); L60.3 Nail dystrophy; G62.9 Polyneuropathy, unspecified; M19.072 Primary osteoarthritis, left ankle and foot; Z79.4 Long term (current) use of insulin | CPT/HCPCS: 11721; 99213 ==

== ENCOUNTER 2024-10-11 08:33 | Oncology outpatient (recurring) (ONCR) | payer MEDICARE, BC, SELFPAY ==
[2024-10-11 09:27] LABS: Basophils % 0.3 %; Eosinophils % 0.5 %; Hematocrit 38.9 % (36-47); Lymphocytes # 1.3 10^3/uL (0.8-4.8); Mean Corpuscular HGB Conc 31.1 g/dL (30-55); Mean Corpuscular Hemoglobin 27.9 pg (27-33); Mean Corpuscular Volume 89.6 fl (85-98); Monocytes # 0.3 10^3/uL (0.2-0.9); Monocytes % 7.1 %; Neutrophils # 2.15 10^3/uL (1.8-7.7); Neutrophils % 56.6 %; Nucleated Red Blood Cells % 0 %; Platelet Count 75 10^3/cmm (157-399); Red Blood Count 4.34 10^6/uL (3.85-5.65); Red Cell Distribution Width 21.2 % (12.1-15.1)
[2024-10-11 09:39] LABS: Slide Review Slide Review Perform
[2024-10-11 09:45] LABS: Alanine Aminotransferase 13 U/L (0-33); Albumin Level 3.8 g/dL (3.5-5.2); Alkaline Phosphatase 67 U/L (35-105); Aspartate Amino Transferase 12 U/L (0-32); Blood Urea Nitrogen 30 mg/dL (8-23); Calcium 8.5 mg/dL (8.5-10.5); Carbon Dioxide 29 mmol/L (22-29); Chloride 105 mmol/L (98-107); Ferritin 152 ng/mL (15-150); Globulin 1.9 g/dL (1.3-4.6); Glucose 138 mg/dL (65-115); Iron 49 ug/dL (37-145); Osmolality Calculated 306 mOsm/kg (285-295); Percent Saturation 24.7 % (20-50); Sodium 144 mmol/L (136-145); Total Bilirubin 0.3 mg/dL (0.15-1.2); Total Iron Binding Capacity 198 mcg/dl; Total Protein 5.7 g/dL (6.6-8.7); Unsaturated Iron Binding 149 ug/dL (112-347)
[2024-10-11 09:50] LABS: Anion Gap 14.2 (5-19); Lactate Dehydrogenase 152 U/L (135-214); Potassium 4.2 mmol/L (3.5-5.1)
[2024-10-11] MEDS: diphenhydrAMINE 25 mg Capsule PO (10:10)
[2024-10-11] MEDS: acetaminophen 325 mg Tablet 650 MG PO (10:10)
[2024-10-11] MEDS: immune globulin (Privigen ONC) 20 GM, immune globulin (Privigen-ONC) 10 GM in empty fle... IV (10:54)
[2024-10-11 11:00] VITALS: BP 146/80; PULSE 68; RESP 16; TEMP 36.6; O2SAT 96
[2024-10-11 12:42] VITALS: BP 145/77; PULSE 89; RESP 16; TEMP 36.3
[2024-10-11 13:08] VITALS: BP 125/79; PULSE 87; RESP 16; TEMP 36.4; O2SAT 96
== END 2024-10-25 23:59 | disposition home or self-care (01) ==
PROVIDERS: Nurse Practitioner Family; Absent Provider Internal Medicine Critical Care Medicine; PCP Family Medicine; Visit Provider Internal Medicine Medical Oncology
DX: C91.10 Chronic lymphocytic leukemia of B-cell type not having achieved remission (principal); D50.9 Iron deficiency anemia, unspecified; D80.1 Nonfamilial hypogammaglobulinemia; R58 Hemorrhage, not elsewhere classified; D69.6 Thrombocytopenia, unspecified; Z79.899 Other long term (current) drug therapy; Z87.891 Personal history of nicotine dependence
CPT/HCPCS: 80053; 82728; 83540; 83550; 83615; 85025; 96365; 96366; 99214; J1459; J9999

== ENCOUNTER 2024-11-08 09:14 | Oncology outpatient (recurring) (ONCR) | payer MEDICARE, BC, SELFPAY ==
[2024-11-08 09:36] LABS: Basophils % 0.2 %; Eosinophils % 0.5 %; Hematocrit 37.8 % (36-47); Lymphocytes # 1.4 10^3/uL (0.8-4.8); Lymphocytes % 32.7 %; Mean Corpuscular HGB Conc 31.2 g/dL (30-55); Mean Corpuscular Volume 89.6 fl (85-98); Mean Platelet Volume 12.2 fL (7.4-10.4); Monocytes # 0.4 10^3/uL (0.2-0.9); Monocytes % 8.4 %; Neutrophils # 2.54 10^3/uL (1.8-7.7); Neutrophils % 57.7 %; Nucleated Red Blood Cells % 0 %; Platelet Count 84 10^3/cmm (157-399); Red Blood Count 4.22 10^6/uL (3.85-5.65); Red Cell Distribution Width 16.6 % (12.1-15.1)
[2024-11-08 10:03] LABS: Alanine Aminotransferase 10 U/L (0-33); Albumin Level 3.6 g/dL (3.5-5.2); Alkaline Phosphatase 57 U/L (35-105); Aspartate Amino Transferase 10 U/L (0-32); Blood Urea Nitrogen 26 mg/dL (8-23); Calcium 8.4 mg/dL (8.5-10.5); Carbon Dioxide 27 mmol/L (22-29); Chloride 103 mmol/L (98-107); Creatinine Clr Calc Pharmacy 48.3651; Ferritin 123 ng/mL (15-150); Glucose 236 mg/dL (65-115); Iron 43 ug/dL (37-145); Osmolality Calculated 302 mOsm/kg (285-295); Percent Saturation 21.6 % (20-50); Sodium 140 mmol/L (136-145); Total Bilirubin 0.3 mg/dL (0.15-1.2); Total Iron Binding Capacity 199 mcg/dl; Total Protein 5.6 g/dL (6.6-8.7); Unsaturated Iron Binding 156 ug/dL (112-347)
[2024-11-08 10:06] LABS: Anion Gap 14.7 (5-19); Potassium 4.7 mmol/L (3.5-5.1)
[2024-11-08 10:19] LABS: Folate Level 12.1 ng/mL (4.8-37.3); Vitamin B12 570 pg/mL (232-1245)
[2024-11-08] MEDS: diphenhydrAMINE 25 mg Capsule PO (12:04)
[2024-11-08] MEDS: acetaminophen 325 mg Tablet 650 MG PO (12:05)
[2024-11-08 12:31] VITALS: BP 139/70; PULSE 70; RESP 16; TEMP 36.1; O2SAT 92
[2024-11-08] MEDS: immune globulin (Privigen ONC) 20 GM, immune globulin (Privigen-ONC) 10 GM in empty fle... IV (12:32)
[2024-11-08 13:38] VITALS: BP 159/118; PULSE 100; RESP 16; TEMP 36.4; O2SAT 91
[2024-11-08 14:25] VITALS: BP 116/64
[2024-11-08 14:33] VITALS: BP 116/64; PULSE 89; RESP 16; TEMP 35.6; O2SAT 95
--- NOTE | 2024-11-08 14:43 | PC.NURSE ---
Patient had increased BP due to getting up to go to the bathroom.
[2024-11-09 08:44] LABS: Free T4 Free Thyroxine 1.47 ng/dL (0.82-1.77); Magnesium 1.7 mg/dL (1.7-2.3); Thyroid Stimulating Hormone 3.15 uIU/mL (0.27-4.20)
== END 2024-11-24 23:59 | disposition home or self-care (01) ==
PROVIDERS: Nurse Practitioner Family; Absent Provider Internal Medicine Critical Care Medicine; PCP Family Medicine; Visit Provider Internal Medicine Medical Oncology
DX: C91.10 Chronic lymphocytic leukemia of B-cell type not having achieved remission (principal); D80.1 Nonfamilial hypogammaglobulinemia; D50.9 Iron deficiency anemia, unspecified; I48.91 Unspecified atrial fibrillation; D69.6 Thrombocytopenia, unspecified; R53.83 Other fatigue; Z85.831 Personal history of malignant neoplasm of soft tissue; Z79.899 Other long term (current) drug therapy
CPT/HCPCS: 80053; 82607; 82728; 82746; 83540; 83550; 83735; 84439; 84443; 85025; 96365; 96366; 99214; J1459; J9999

== ENCOUNTER → 2024-11-16 10:07 | Outpatient (BNVA) | payer MEDICARE, BC, SELFPAY | PROVIDERS: PCP Family Medicine; Visit Provider Nurse Practitioner Family | DX: M79.89 Other specified soft tissue disorders (principal); I48.91 Unspecified atrial fibrillation; L03.115 Cellulitis of right lower limb; M79.604 Pain in right leg; Z95.0 Presence of cardiac pacemaker; Z87.891 Personal history of nicotine dependence | CPT/HCPCS: 99214 ==

== ENCOUNTER → 2024-12-01 13:14 | Outpatient (BNVA) | payer MEDICARE, BC, SELFPAY | PROVIDERS: PCP Family Medicine; Visit Provider Podiatrist Foot & Ankle Surgery | DX: E11.42 Type 2 diabetes mellitus with diabetic polyneuropathy (principal); L60.3 Nail dystrophy; G62.9 Polyneuropathy, unspecified; M19.072 Primary osteoarthritis, left ankle and foot; M25.471 Effusion, right ankle; Z79.4 Long term (current) use of insulin | CPT/HCPCS: 11721; 99213 ==

== ENCOUNTER 2024-12-06 09:15 | Oncology outpatient (recurring) (ONCR) | payer MEDICARE, BC, SELFPAY ==
--- NOTE | 2024-11-29 15:45 | USR_ITS ---
PROCEDURE INFORMATION: Exam: US Duplex Lower Extremity Veins, Bilateral, Venous Insufficiency Exam date and time: 11/29/2024 3:39 PM Age: 84 years old Clinical indication: Pain; Leg, lower; Bilateral; Prior surgery; Surgery date: 6+ months; Surgery type: Prior rle ablasion; Additional info: Edema, pain unilateral edema TECHNIQUE: Imaging protocol: Real-time duplex ultrasound of the extremities with 2-D gonzalez scale, color Doppler flow and spectral waveform analysis including responses to compression and other maneuvers (when performed) with image documentation. Complete exam focused on the bilateral lower extremity veins for venous insufficiency. COMPARISON: No relevant prior studies available. FINDINGS: Right deep veins: Unremarkable. The common femoral, femoral, proximal profunda femoral and popliteal veins are patent without thrombus. Normal Doppler waveforms. Normal compressibility and/or augmentation response. No evidence of venous reflux. Right superficial veins: Saphenofemoral junction and greater saphenous veins are patent without thrombus. Reflux seen within the great saphenous vein distal to the saphenofemoral junction. Left deep veins: Unremarkable. The common femoral, femoral, proximal profunda femoral and popliteal veins are patent without thrombus. Normal Doppler waveforms. Normal compressibility and/or augmentation response. No evidence of venous reflux. Left superficial veins: Saphenofemoral junction and greater saphenous veins are patent without thrombus. Reflux seen within the great saphenous vein distally. Soft tissues: Subcutaneous edema in the lower extremities. US/CV kemar dup hardeep YEN [id number] IMPRESSION: Reflux seen within the greater saphenous veins bilaterally suggestive of venous insufficiency. No evidence of deep vein thrombosis.
--- NOTE | 2024-12-02 15:00 | USR_ITS ---
PROCEDURE INFORMATION: Exam: US Duplex Bilateral Lower Extremity Arteries Exam date and time: 12/02/2024 2:31 PM Age: 84 years old Clinical indication: Edema, localized; Lower extremity, right; Additional info: Cellulitis, edema rle TECHNIQUE: Imaging protocol: Real-time ultrasound scan of the arteries of the bilateral lower extremities with 2-D gonzalez scale, color Doppler flow and spectral waveform analysis. Images documented and saved. COMPARISON: [place] [id number] 11/29/2024 3:39 PM FINDINGS: Right common femoral artery: No occlusion or significant stenosis. Normal waveform. Right superficial femoral artery: No occlusion or significant stenosis. Normal waveform. Right popliteal artery: No occlusion or significant stenosis. Normal waveform. Right calf/foot arteries: No occlusion or significant stenosis in the visualized arteries. Normal waveforms. Dorsalis pedis artery is patent. Left common femoral artery: No occlusion or significant stenosis. Normal waveform. Left superficial femoral artery: No occlusion or significant stenosis. Normal waveform. Left popliteal artery: No occlusion or significant stenosis. Normal waveform. Left calf/foot arteries: No occlusion or significant stenosis in the visualized arteries. Posterior tibial artery has a monophasic waveform. Dorsalis pedis artery is triphasic. Dorsalis pedis artery is patent. US/[place] [id number] IMPRESSION: No stenosis or occlusion.
[2024-12-06 09:58] LABS: Hematocrit 39.7 % (36-47); Mean Corpuscular HGB Conc 31.2 g/dL (30-55); Mean Corpuscular Hemoglobin 27.8 pg (27-33); Mean Platelet Volume 11.6 fL (7.4-10.4); Platelet Count 120 10^3/cmm (157-399); Red Blood Count 4.46 10^6/uL (3.85-5.65); Red Cell Distribution Width 14.6 % (12.1-15.1); White Blood Count 5.35 10^3/uL (3.29-11.43)
[2024-12-06 10:29] LABS: Alanine Aminotransferase 13 U/L (0-33); Albumin Level 3.7 g/dL (3.5-5.2); Alkaline Phosphatase 72 U/L (35-105); Anion Gap 17.7 (5-19); Aspartate Amino Transferase 11 U/L (0-32); Blood Urea Nitrogen 25 mg/dL (8-23); Calcium 8.9 mg/dL (8.5-10.5); Carbon Dioxide 26 mmol/L (22-29); Chloride 102 mmol/L (98-107); Creatinine Clr Calc Pharmacy 55.1605; Ferritin 136 ng/mL (15-150); Globulin 2.1 g/dL (1.3-4.6); Glucose 254 mg/dL (65-115); Iron 47 ug/dL (37-145); Osmolality Calculated 305 mOsm/kg (285-295); Percent Saturation 22.3 % (20-50); Potassium 4.7 mmol/L (3.5-5.1); Sodium 141 mmol/L (136-145); Total Bilirubin 0.3 mg/dL (0.15-1.2); Total Iron Binding Capacity 210 mcg/dl; Total Protein 5.8 g/dL (6.6-8.7); Unsaturated Iron Binding 163 ug/dL (112-347)
[2024-12-06 10:58] LABS: Absolute Neutrophil 3.5 10^3/cmm (1.4-6.5); Absolute Segmented Neutrophil 3.2 10/cmm (1.6-7.1); Band Neutrophils Absolute 0.3 10^3/cmm (0.0-1.2); Eosinophils 0 %; Lymphocytes 16 %; Lymphocytes Absolute 1.3 10^3/cmm (1.2-3.4); Monocytes Absolute 0.2 10^3/cmm (0.1-0.6); Platelet Estimate Decreased (Normal); Segmented Neutrophils 60 %; Slide Review Slide Review Perform; Total Cells Counted 100 (0-100)
[2024-12-06] MEDS: acetaminophen 325 mg Tablet 650 MG PO (11:15)
[2024-12-06] MEDS: diphenhydrAMINE 25 mg Capsule PO (11:15)
[2024-12-06] MEDS: immune globulin (Privigen ONC) 20 GM, immune globulin (Privigen-ONC) 10 GM in empty fle... IV (11:44)
[2024-12-06 11:45] VITALS: BP 126/70; PULSE 80; RESP 16; TEMP 36.6; O2SAT 95
[2024-12-06 12:00] VITALS: BP 128/69; PULSE 78; RESP 16; TEMP 36.6; O2SAT 95
[2024-12-06 13:59] VITALS: BP 126/82; PULSE 90; RESP 16; TEMP 35.9; O2SAT 92
== END 2024-12-25 23:59 | disposition home or self-care (01) ==
LOC: RAD 09:24 → ONCMED 09:24
PROVIDERS: Nurse Practitioner Family; Absent Provider Internal Medicine Critical Care Medicine; PCP Family Medicine; Visit Provider Internal Medicine Medical Oncology
DX: Z53.9 Procedure and treatment not carried out, unspecified reason; C91.10 Chronic lymphocytic leukemia of B-cell type not having achieved remission; D80.1 Nonfamilial hypogammaglobulinemia; D50.9 Iron deficiency anemia, unspecified; M79.604 Pain in right leg; Z79.899 Other long term (current) drug therapy
CPT/HCPCS: 80053; 82728; 83540; 83550; 85007; 85025; 93925; 93970; 96365; 96366; 99214; J1459; J9999

== ENCOUNTER 2025-01-21 09:04 | Oncology outpatient (recurring) (ONCR) | payer MEDICARE, BC, SELFPAY ==
[2025-01-03 09:11] VITALS: BP 125/65; PULSE 80; RESP 17; TEMP 36.8; O2SAT 95
[2025-01-03 09:59] LABS: Basophils % 0.2 %; Eosinophils % 0.2 %; Hematocrit 41.7 % (36-47); Lymphocytes # 2.4 10^3/uL (0.8-4.8); Lymphocytes % 37.3 %; Mean Corpuscular HGB Conc 31.2 g/dL (30-55); Mean Corpuscular Hemoglobin 27.6 pg (27-33); Mean Corpuscular Volume 88.5 fl (85-98); Mean Platelet Volume 12.3 fL (7.4-10.4); Monocytes # 0.4 10^3/uL (0.2-0.9); Monocytes % 6.3 %; Neutrophils # 3.56 10^3/uL (1.8-7.7); Neutrophils % 55.5 %; Nucleated Red Blood Cells % 0 %; Platelet Count 110 10^3/cmm (157-399); Red Blood Count 4.71 10^6/uL (3.85-5.65); Red Cell Distribution Width 14.9 % (12.1-15.1)
[2025-01-03 10:16] LABS: Alanine Aminotransferase 14 U/L (0-33); Albumin Level 3.9 g/dL (3.5-5.2); Alkaline Phosphatase 78 U/L (35-105); Anion Gap 15.7 (5-19); Aspartate Amino Transferase 16 U/L (0-32); Blood Urea Nitrogen 30 mg/dL (8-23); Calcium 9.1 mg/dL (8.5-10.5); Carbon Dioxide 27 mmol/L (22-29); Chloride 101 mmol/L (98-107); Globulin 2.5 g/dL (1.3-4.6); Glucose 220 mg/dL (65-115); Lactate Dehydrogenase 184 U/L (135-214); Osmolality Calculated 301 mOsm/kg (285-295); Potassium 4.7 mmol/L (3.5-5.1); Sodium 139 mmol/L (136-145); Total Bilirubin 0.4 mg/dL (0.15-1.2); Total Protein 6.4 g/dL (6.6-8.7)
[2025-01-03 10:28] LABS: Slide Review Slide Review Perform
[2025-01-03] MEDS: acetaminophen 325 mg Tablet 650 MG PO (10:37)
[2025-01-03] MEDS: diphenhydrAMINE 25 mg Capsule PO (10:37)
[2025-01-03 11:15] VITALS: BP 121/77; PULSE 79; RESP 16; TEMP 36.2; O2SAT 94
[2025-01-03] MEDS: immune globulin (Privigen ONC) 20 GM, immune globulin (Privigen-ONC) 10 GM in empty fle... IV (11:15)
[2025-01-03 11:30] VITALS: BP 127/83; PULSE 87; RESP 18; TEMP 35.9; O2SAT 95
[2025-01-03 12:00] VITALS: BP 125/84; PULSE 87; RESP 17; TEMP 36.1; O2SAT 96
[2025-01-03 13:10] VITALS: BP 114/67; PULSE 84; RESP 17; TEMP 36.1; O2SAT 90
--- NOTE | 2025-01-21 09:30 | PETR_ITS ---
PROCEDURE INFORMATION: Exam: PET/CT Whole Body Exam date and time: 01/21/2025 10:06 AM Age: 84 years old Clinical indication: Condition or disease; Primary cancer: Cll; Follow-up oncological assessment; Prior surgery; Surgery date: 6+ months; Surgery type: Pacemaker, and watchmen; Additional info: Cll, Dr. Sol would like this 01/21/2025 LABS AND CLINICAL REPORTS: Glucose: 158 mg/dl Treatment strategy for malignancy (PET staging): Restaging (PS) TECHNIQUE: Imaging protocol: Following at least four-hour fasting and following the injection of radiopharmaceutical, low dose CT images were obtained. Then, PET images were obtained. Attenuation corrected images were constructed using the CT scan. Fused images of PET and CT were reviewed. The standardized uptake values (SUV) reported below are maximum values within a region of interest, expressed in gm/ml. Exam includes the whole body. SUV normalization method: BodyWeight Radiopharmaceutical: 11.1 mCi F-18 FDG (Fluorodeoxyglucose), IV. Time of imaging post radiopharmaceutical administration: 46 minutes Injection site: left ac COMPARISON: 1. PT PET Scan 05/22/2023 12:[address] angio chest PE protcl [id number] 04/27/2024 2:04 PM FINDINGS: Brain: Visualized brain has normal physiologic uptake. Pharynx: No abnormal uptake. Larynx: No abnormal uptake. Lungs, pleura and trachea: Stable size of non FDG avid pulmonary nodules including 1.2 cm nodule in the superior segment of the left lower lobe (series 202, image 461). Trace bilateral pleural effusions. Heart: Trace pericardial effusion. Mediastinal space: No abnormal uptake. Liver: No abnormal uptake. Gallbladder and biliary ducts: Status post cholecystectomy. Pancreas: No abnormal uptake. Spleen: No abnormal uptake. Adrenal glands: No abnormal uptake. Kidneys and ureters: Normal physiologic uptake. Stomach and bowel: No abnormal uptake. Vasculature: No abnormal uptake. Lymph nodes: No abnormal uptake. No lymphadenopathy in the head, neck, chest, abdomen, pelvis, and extremities. Skeleton: Degenerative tracer uptake in the left knee. Status post right knee arthroplasty. Soft tissues: Suspected tracer extravasation in the left arm. METRICS: Mediastinal blood pool: SUV max = 3.6 Liver uptake: SUV max = 3.9 PET/PET WB melanoma SUBSEQ [id number] IMPRESSION: 1. No FDG-avid disease. 2. Stable size of non-FDG avid pulmonary nodules. 3. Trace bilateral pleural effusions and pericardial effusion.
== END 2025-01-24 23:59 | disposition home or self-care (01) ==
PROVIDERS: Nurse Practitioner Family; Absent Provider Internal Medicine Critical Care Medicine; PCP Family Medicine; Visit Provider Internal Medicine Medical Oncology
DX: C91.10 Chronic lymphocytic leukemia of B-cell type not having achieved remission (principal); R91.8 Other nonspecific abnormal finding of lung field; Z90.49 Acquired absence of other specified parts of digestive tract; R93.6 Abnormal findings on diagnostic imaging of limbs; Z96.651 Presence of right artificial knee joint
CPT/HCPCS: 36415; 78816; 80053; 83615; 85025; 96365; 96366; 99214; A9552; J1459; J9999

== ENCOUNTER 2025-01-31 09:42 | Oncology outpatient (recurring) (ONCR) | payer MEDICARE, BC, SELFPAY ==
[2025-01-31 10:16] LABS: Hematocrit 40.3 % (36-47); Hemoglobin 12.50 g/dL (11.27-16.99); Mean Corpuscular HGB Conc 31.0 g/dL (30-55); Mean Corpuscular Hemoglobin 27.6 pg (27-33); Mean Corpuscular Volume 89.0 fl (85-98); Nucleated Red Blood Cells % 0 %; Platelet Count 95 10^3/cmm (157-399); Red Blood Count 4.53 10^6/uL (3.85-5.65); White Blood Count 5.08 10^3/uL (3.29-11.43)
[2025-01-31 10:35] LABS: Slide Review Slide Review Perform
[2025-01-31 10:37] LABS: Alanine Aminotransferase 12 U/L (0-33); Albumin Level 3.7 g/dL (3.5-5.2); Alkaline Phosphatase 63 U/L (35-105); Anion Gap 16.6 (5-19); Aspartate Amino Transferase 11 U/L (0-32); Blood Urea Nitrogen 29 mg/dL (8-23); Calcium 8.9 mg/dL (8.5-10.5); Carbon Dioxide 28 mmol/L (22-29); Chloride 100 mmol/L (98-107); Creatinine Clr Calc Pharmacy 41.1042; Globulin 2.4 g/dL (1.3-4.6); Glucose 191 mg/dL (65-115); Osmolality Calculated 301 mOsm/kg (285-295); Potassium 4.6 mmol/L (3.5-5.1); Sodium 140 mmol/L (136-145); Total Protein 6.1 g/dL (6.6-8.7)
[2025-01-31] MEDS: immune globulin (Privigen ONC) 20 GM, immune globulin (Privigen-ONC) 10 GM in empty fle... IV (11:14)
[2025-01-31 11:30] VITALS: BP 113/75; PULSE 81; RESP 16; TEMP 36.6; O2SAT 92
[2025-01-31 13:29] VITALS: BP 109/68; PULSE 80; O2SAT 92
== END 2025-02-24 23:59 | disposition home or self-care (01) ==
PROVIDERS: Absent Provider Internal Medicine Critical Care Medicine; PCP Family Medicine; Visit Provider Internal Medicine Medical Oncology
DX: C91.10 Chronic lymphocytic leukemia of B-cell type not having achieved remission (principal); D80.1 Nonfamilial hypogammaglobulinemia; D69.6 Thrombocytopenia, unspecified; D50.9 Iron deficiency anemia, unspecified; R10.12 Left upper quadrant pain; Z87.891 Personal history of nicotine dependence; Z79.899 Other long term (current) drug therapy; Z85.831 Personal history of malignant neoplasm of soft tissue
CPT/HCPCS: 80053; 85025; 96365; 96366; 99214; J1459; J9999

== ENCOUNTER → 2025-02-02 12:56 | Outpatient (BNVA) | payer MEDICARE, BC, SELFPAY | PROVIDERS: PCP Family Medicine; Visit Provider Podiatrist Foot & Ankle Surgery | DX: E11.42 Type 2 diabetes mellitus with diabetic polyneuropathy (principal); L60.3 Nail dystrophy; E11.8 Type 2 diabetes mellitus with unspecified complications; G62.9 Polyneuropathy, unspecified; E11.9 Type 2 diabetes mellitus without complications; M19.072 Primary osteoarthritis, left ankle and foot; M25.471 Effusion, right ankle | CPT/HCPCS: 11721 ==

== ENCOUNTER 2025-02-03 10:05 | Outpatient (CLI) | payer MEDICARE, BC, SELFPAY ==
--- NOTE | 2025-02-03 10:13 | US_ITS ---
WS: [id number] ULTRASOUND THYROID FNA CLINICAL INFORMATION: THYROID NODULE TECHNIQUE: Ultrasound-guided FNA FINDINGS: Outside ultrasound 01/05/2025 was reviewed. Multinodular thyroid with numerous heterogeneous nodules suspicious for multinodular goiter. The dominant left-sided inferior lobe nodule was selected today for sampling. This nodule is somewhat heterogeneous with increased peripheral vascularity. The procedure including risks, benefits, and complications were discussed with the patient who agreed to proceed. Timeout was performed. Using sterile technique patient was prepped and draped in usual sterile fashion. After 1% lidocaine, using ultrasound guidance, a 25-gauge needle was advanced into the LEFT inferior thyroid nodule. 5 passes were made with active aspiration. Pathology was present for slide preparation. Small amount of hematoma was present about the left-sided nodule postprocedure. Hematoma measures approximately 2.2 x 0.6 cm. After discussion with the patient, right-sided nodule was not sampled today. Patient can return at a later date for RIGHT sided nodule sampling if desired and pending cytology results Patient remained in the ultrasound suite 15 minutes postprocedure with intermittent ultrasound to ensure no additional hematoma. US/US biopsy/FNA thyroid [id number] IMPRESSION: 1. Ultrasound-guided LEFT inferior thyroid nodule FNA. 2. Small amount of post FNA hematoma measuring 1.2 x 0.6 cm 3. Cytology is pending.
== END 2025-02-03 10:06 | disposition home or self-care (01) ==
LOC: RAD 10:08
PROVIDERS: PCP Family Medicine
DX: E04.9 Nontoxic goiter, unspecified (principal)
CPT/HCPCS: 10005; 88173